=== PATIENT | male | born 1990 ===

== ENCOUNTER 2018-07-01 16:34 | Inpatient (IN) | payer OTHER ==
[2018-07-01] VITALS (11 sets, daily range): BP systolic 108–142; BP diastolic 65–91
[~2018-07-01] VITALS: Ht 167.6 cm; Wt 74.4 kg
--- NOTE | 2018-07-01 17:13 | NUR ---
BREANN AVILA admitted to room 405-1, with an admitting diagnosis of DIABETIC ULCER, on 06/30/18 from DIRECT ADMISSION via AMBULATION, accompanied by POUNCING LATHE OPERATOR.BREANN AVILA introduced to surroundings, call light, bed controls, phone, TV, temperature control, lights, meal times, smoking policy, visitor policy, side rail policy, bathrooms and showers. Patient Rights given to patient in the handbook. BREANN AVILA verbalizes understanding that [facility] is not responsible for the loss or damage to any personal effects or valuables that are kept in the patients posession during their hospitalization. BREANN AVILA verbalizes understanding of Interdisciplinary Patient Education. Patient and/or family were informed about the Rapid Response Team and its purpose.
[2018-07-01] MEDS ORDERED: NS IV 1000 ML 1,000 ML IV SCH (18:00)
[2018-07-01] MEDS ORDERED: NS IV ONE (18:00)
[2018-07-01] MEDS ORDERED: ONDANSETRON 4 MG/2 ML (SDV) Z0FRAN IVP PRN (18:15)
[2018-07-01] MEDS ORDERED: PIPERACILLIN/TAZO 4.5 GM/NS 100 ML IV NR ×2 (18:15)
[2018-07-01] MEDS ORDERED: CATHETER FLUSH 10 ML SYR IV PRN (18:15)
[2018-07-01] MEDS ORDERED: ACETAMINOPHEN 500 MG TAB (TYLENOL) ONE (18:16)
[2018-07-01] MEDS: ACETAMINOPHEN 500 MG TAB (TYLENOL) PO PRN (18:19)
[2018-07-01] MEDS: NS IV 1000 ML 1,000 ML IV SCH ×4 (18:20→23:47)
--- NOTE | 2018-07-01 18:37 | Diagnostic Imaging Report ---
INDICATION: Fever. Time of exam: 6:23 PM No prior studies are available for comparison. The heart size is normal. The pulmonary vascularity is unremarkable. The lungs are clear. No infiltrate, effusion or pneumothorax is detected. Impression: No acute cardiopulmonary process is detected. Dictated by: Dictated on workstation # [id number]
[2018-07-01 18:50] LABS: BASOPHILS # (AUTO) 0.1 10^3/uL (0.0-0.1); BASOPHILS % (AUTO) 0 % (0-10); EOSINOPHILS % (AUTO) 0 % (0-10); HEMATOCRIT 38 % (40-54); HEMOGLOBIN 13.2 G/DL (13.3-17.7); LYMPHOCYTES % (AUTO) 10 % (12-44); MEAN CORPUSCULAR HEMOGLOBIN 29 PG (25-34); MEAN CORPUSCULAR HGB CONC 35 G/DL (32-36); MEAN CORPUSCULAR VOLUME 84 FL (80-99); MEAN PLATELET VOLUME 9.8 FL (7.4-10.4); MONOCYTES # (AUTO) 1.1 X 10^3 (0.0-1.0); MONOCYTES % (AUTO) 6 % (0-12); NEUTROPHILS # (AUTO) 16.2 X 10^3 (1.8-7.8); NEUTROPHILS % (AUTO) 84 % (42-75); PLATELET COUNT 293 10^3/uL (130-400); RED CELL DISTRIBUTION WIDTH 12.2 % (10.0-14.5); WHITE BLOOD COUNT 19.4 10^3/uL (4.3-11.0)
[2018-07-01] MEDS ORDERED: VANCOMYCIN 1,750 MG/NS 500 ML IVPB IV NR ×2 (19:00)
[2018-07-01 19:11] LABS: BILIRUBIN,TOTAL 1.1 MG/DL (0.1-1.0); CALCIUM 10.1 MG/DL (8.5-10.1); CREATININE SERUM 1.49 MG/DL (0.60-1.30); POTASSIUM 3.4 MMOL/L (3.6-5.0); TOTAL PROTEIN 7.7 GM/DL (6.4-8.2)
[2018-07-01 19:27] LABS: LYMPHOCYTES % (MANUAL) 11 %; MONOCYTES % (MANUAL) 4 %; NEUTROPHILS % (MANUAL) 85 %; RBC MORPH NORMAL
--- NOTE | 2018-07-01 19:28 | NUR ---
VANCOMYCIN PHARMACY TO DOSE: BASED ON IBW 63.8 KG, SCr 1.49, EST CrCl 66.6 LOADING DOSE: 1,750 MG MAIN DOSE: 1,250 MG IV Q12HRS VANCOMYCIN TROUGH 07/03/18 @ 06:00 IF TROUGH >20 HOLD 07/03/18 07:00 DOSE.
[2018-07-01] MEDS: inSUlin ASPART (NovoLOG) 1 UNIT/0.01 ML (CHARGE PER UNIT) SC SCH (21:08)
[2018-07-02] MEDS: PIPERACILLIN/TAZOBACTAM (BULK) 4.5 GM in NS (IVPB) 100 ML IV SCH ×3 (01:13→17:01)
[2018-07-02] MEDS: NS IV 1000 ML 1,000 ML IV SCH ×3 (03:44→19:37)
[2018-07-02 04:00] VITALS: BP 128/84
[2018-07-02 06:10] LABS: BASOPHILS # (AUTO) 0.1 10^3/uL (0.0-0.1); BASOPHILS % (AUTO) 0 % (0-10); EOSINOPHILS # (AUTO) 0.2 10^3/uL (0.0-0.3); EOSINOPHILS % (AUTO) 1 % (0-10); HEMATOCRIT 33 % (40-54); HEMOGLOBIN 11.2 G/DL (13.3-17.7); LYMPHOCYTES # (AUTO) 3.1 X 10^3 (1.0-4.0); LYMPHOCYTES % (AUTO) 21 % (12-44); MEAN CORPUSCULAR HEMOGLOBIN 30 PG (25-34); MEAN CORPUSCULAR HGB CONC 34 G/DL (32-36); MEAN CORPUSCULAR VOLUME 87 FL (80-99); MEAN PLATELET VOLUME 9.3 FL (7.4-10.4); MONOCYTES # (AUTO) 1.2 X 10^3 (0.0-1.0); MONOCYTES % (AUTO) 8 % (0-12); NEUTROPHILS # (AUTO) 10.6 X 10^3 (1.8-7.8); NEUTROPHILS % (AUTO) 70 % (42-75); PLATELET COUNT 257 10^3/uL (130-400); RED CELL DISTRIBUTION WIDTH 12.4 % (10.0-14.5); WHITE BLOOD COUNT 15.1 10^3/uL (4.3-11.0)
[2018-07-02] MEDS: inSUlin ASPART (NovoLOG) 1 UNIT/0.01 ML (CHARGE PER UNIT) SC SCH ×4 (06:14→21:14)
[2018-07-02] MEDS: VANCOMYCIN 1,250 MG/NS 250 ML IVPB IV SCH ×4 (06:14→19:58)
[2018-07-02 06:39] LABS: ALANINE AMINOTRANSFERASE 12 U/L (0-55); ALKALINE PHOSPHATASE 96 U/L (40-136); BILIRUBIN,TOTAL 0.7 MG/DL (0.1-1.0); BUN/CREATININE RATIO 15; CALCIUM 8.3 MG/DL (8.5-10.1); CARBON DIOXIDE 22 MMOL/L (21-32); CHLORIDE 106 MMOL/L (98-107); CREATININE SERUM 1.19 MG/DL (0.60-1.30); GFR ESTIMATED > 60; GLUCOSE 263 MG/DL (70-105); SODIUM 136 MMOL/L (135-145); TOTAL PROTEIN 5.9 GM/DL (6.4-8.2)
[2018-07-02 07:50] VITALS: BP 130/72
[2018-07-02] MEDS ORDERED: ACET-2267 PO ×2 (09:01)
[2018-07-02] MEDS ORDERED: METF-398 PO ×2 (09:01)
--- NOTE | 2018-07-02 09:03 | NUR ---
SPOKE WITH THE PATIENT VIA TWO WAY PHONE WITH CARDIOVASCULAR DISEASE SPECIALIST ON THE LINE ABOUT MEDICATIONS. HE STATES HE TAKES METFORMIN BID AND HE GETS THAT SUPPLY FROM [place] [facility]. HE HAS THE TABLETS HERE WITH HIM AND THEY APPEAR TO BE 850MG TABLETS. HE ALSO HAS SOME TYLENOL OTC THAT I ADDED TO THE MED REC PRN. HE STATES HE DOES NOT HAVE A PHARMACY PREFERENCE, HE APPEARS TO BE ON [facility] WITH NO INSURANCE SO I ENTERED [facility] AT THIS TIME.
[2018-07-02] MEDS: ACETAMINOPHEN 500 MG TAB (TYLENOL) PO PRN ×2 (09:08→20:02)
[2018-07-02 11:06] VITALS: BP 120/73
--- NOTE | 2018-07-02 11:29 | History & Physicial (CHS) ---
HPI History of Present Illness: 28 yo male with diabetes presented to clinic with wound on toe, he states it started about 2 weeks ago. He was given antibiotics and followed up shortly after to establish care, but at that visit was noted to have marked tachycardia and fever and was sent for direct admission for cellulitis with suspected sepsis. On arrival, he did have leukocytosis, tachycardia and fever as well as acute kidney injury, but no lactic acidosis or hypotension. He was started on zosyn and vancomycin and he was given 30 cc/kg bolus followed by aggressive fluid resuscitation and his tachycardia has resolved and he is feeling better. He does have some periumbilical pain. Source: patient Exam Limitations: language barrier Date seen by provider: Jul 02, 2018 Time Seen by Provider: 09:45 Attending Physician Chilo Schmidt MD PCP Chilo Schmidt MD Consult Date of Admission Jul 01, 2018 at 17:05 Home Medications Home Medications Reviewed patient Home Medication Reconciliation performed by pharmacy medication reconciliations fire alarm technician and/or nursing. Patients Allergies have been reviewed. Allergies Coded Allergies: No Known Drug Allergies (Unverified , 07/01/18) Uncoded Allergies: NKDA (Allergy, Unknown, 07/01/18) QKS-Irwtte-Bruqnt Hx Patient Social History Alcohol Use: Denies Use Recreational Drug Use: No Recent Foreign Travel: No Contact w/other who traveled: No Recent Infectious Disease Expo: No Physical Abuse Screen: No Sexual Abuse: No Past Medical History PMHx: DM Family Medical History Significant Family History: Diabetes Family History: Diabetes mellitus 19 MOTHER Review of Systems ([place]) Constitutional: fever Respiratory: cough; No short of breath Cardiovascular: No chest pain Gastrointestinal: abdominal pain, nausea; No vomiting Skin: see HPI Reviewed Test Results Reviewed Test Results Lab Laboratory Tests Test 07/01/18 18:30 07/01/18 21:01 07/02/18 06:05 07/02/18 06:10 Range/Units White Blood Count 19.4 H 15.1 H 4.3-11.0 10^3/uL Red Blood Count 4.53 3.79 L 4.35-5.85 10^6/uL Hemoglobin 13.2 L 11.2 L 13.3-17.7 G/DL Hematocrit 38 L 33 L 40-54 % Mean Corpuscular Volume 84 87 80-99 FL Mean Corpuscular Hemoglobin 29 30 25-34 PG Mean Corpuscular Hemoglobin Concent 35 34 32-36 G/DL Red Cell Distribution Width 12.2 12.4 10.0-14.5 % Platelet Count 293 257 130-400 10^3/uL Mean Platelet Volume 9.8 9.3 7.4-10.4 FL Neutrophils (%) (Auto) 84 H 70 42-75 % Lymphocytes (%) (Auto) 10 L 21 12-44 % Monocytes (%) (Auto) 6 8 0-12 % Eosinophils (%) (Auto) 0 1 0-10 % Basophils (%) (Auto) 0 0 0-10 % Neutrophils # (Auto) 16.2 H 10.6 H 1.8-7.8 X 10^3 Lymphocytes # (Auto) 2.0 3.1 1.0-4.0 X 10^3 Monocytes # (Auto) 1.1 H 1.2 H 0.0-1.0 X 10^3 Eosinophils # (Auto) 0.0 0.2 0.0-0.3 10^3/uL Basophils # (Auto) 0.1 0.1 0.0-0.1 10^3/uL Neutrophils % (Manual) 85 % Lymphocytes % (Manual) 11 % Monocytes % (Manual) 4 % Blood Morphology Comment NORMAL Sodium Level 136 136 135-145 MMOL/L Potassium Level 3.4 L 4.0 3.6-5.0 MMOL/L Chloride Level 98 106 98-107 MMOL/L Carbon Dioxide Level 22 22 21-32 MMOL/L Anion Gap 16 H 8 5-14 MMOL/L Blood Urea Nitrogen 25 H 18 7-18 MG/DL Creatinine 1.49 H 1.19 0.60-1.30 MG/DL Estimat Glomerular Filtration Rate 56 > 60 BUN/Creatinine Ratio 17 15 Glucose Level 310 H 263 H 70-105 MG/DL Lactic Acid Level 1.21 0.50-2.00 MMOL/L Calcium Level 10.1 8.3 L 8.5-10.1 MG/DL Corrected Calcium 10.1 9.1 8.5-10.1 MG/DL Total Bilirubin 1.1 H 0.7 0.1-1.0 MG/DL Aspartate Amino Transf (AST/SGOT) 23 17 5-34 U/L Alanine Aminotransferase (ALT/SGPT) 16 12 0-55 U/L Alkaline Phosphatase 117 96 40-136 U/L Total Protein 7.7 5.9 L 6.4-8.2 GM/DL Albumin 4.0 3.0 L 3.2-4.5 GM/DL Glucometer 263 H 268 H 70-110 MG/DL Test 07/02/18 10:22 Range/Units Glucometer 144 H 70-110 MG/DL Radiology CXR 07/02 unremarkable. Physical Exam-(CHC) Physical Exam Vital Signs VS - Last 72 Hours, by Label 07/01/18 07/01/18 07/01/18 07/01/18 17:28 18:03 18:30 18:30 Temp 101.3 101.3 101.0 101.0 Pulse 121 121 112 114 Resp 20 20 20 20 B/P (MAP) 142/85 142/85 (104) 122/78 (93) 122/78 (93) Pulse Ox 98 98 98 98 O2 Delivery Room Air Room Air Room Air Room Air 07/01/18 07/01/18 07/01/18 07/01/18 18:45 19:00 20:00 20:00 Temp 101.0 99.6 Pulse 114 105 98 Resp 22 B/P (MAP) 124/78 (93) 112/65 (81) 113/70 (84) Pulse Ox 98 95 97 O2 Delivery Room Air Room Air Room Air Room Air 07/01/18 07/01/18 07/01/18 07/01/18 20:00 21:00 22:00 23:00 Pulse 98 94 87 90 B/P (MAP) 113/70 (84) 122/77 (92) 108/69 (82) 134/87 (103) Pulse Ox 97 97 96 98 O2 Delivery Room Air Room Air Room Air Room Air 07/01/18 07/01/18 07/02/18 07/02/18 23:40 23:44 04:00 07:50 Temp 98.1 98.5 99.8 Pulse 89 90 92 91 Resp 18 16 16 B/P (MAP) 134/87 (103) 142/91 (108) 128/84 (99) 130/72 (91) Pulse Ox 98 97 98 95 O2 Delivery Room Air Room Air Room Air Room Air 07/02/18 11:06 Temp 98.3 Pulse 90 Resp 16 B/P (MAP) 120/73 (89) Pulse Ox 96 O2 Delivery Room Air Capillary Refill : General Appearance: WD/WN, no apparent distress Respiratory: lungs clear, normal breath sounds Cardiovascular: regular rate, rhythm, no murmur Peripheral Pulses: 2+ Dorsalis Pedis (R), 2+ Left Dors-Pedis (L) Gastrointestinal: normal bowel sounds, soft; No guarding, No rebound; other ( mild periumbilical ttp) Extremities: no pedal edema, other (Black, dry ulcer on right first toe about 1.5 cm diameter with faint surrounding erythema) Neurologic/Psychiatric: alert, normal mood/affect Assessment/Plan Assessment/Plan Admission Dx Sepsis Admission Status: Inpatient Order (span 2 midnights) Reason for Inpatient Admission: Sepsis with underlying diabetes, high risk for complications. (1) Cellulitis Status: Acute Assessment & Plan: Started vancomycin and zosyn, improved this am, continue to monitor closely. (2) Sepsis Status: Acute Assessment & Plan: Secondary to cellulitis, did not meet criteria for severe sepsis (no hypotension, lactic acidosis. Cr elevated but not above 2). Abx as above. Fluid resuscitation done yesterday with good results. (3) Acute renal insufficiency Status: Acute Assessment & Plan: Secondary to sepsis versus hyperglycemia. Improving with IVF. (4) Diabetes mellitus Status: Chronic Assessment & Plan: Sliding scale insulin, hold metformin for now. Qualifiers: Qualified Codes: E11.621 - Type 2 diabetes mellitus with foot ulcer; L97.509 - Non-pressure chronic ulcer of other part of unspecified foot with unspecified severity (5) Diabetic ulcer of toe Status: Acute Assessment & Plan: Wound consult, arterial US. Had x-ray outpatient that did not show evidence of osteo. Qualifiers: (6) DVT prophylaxis Status: Acute Assessment & Plan: Enoxaparin Clinical Quality Measures DVT/VTE Risk/Contraindication: Risk Factor Score Per Nursin RFS Level Per Nursing on Admit: 2=Moderate MICHAEL MARTINEZ MD Jul 02, 2018 11:29
[2018-07-02] MEDS: ENOXAPARIN 40 MG/0.4 ML (LOVENOX) SYR SC SCH (12:05)
[2018-07-02] MEDS ORDERED: DAKIN'S 1/4 STRENGTH (0.125%) 473 ML BTL TOP SCH (12:15)
--- NOTE | 2018-07-02 12:22 | Wound Care Assessment ---
Wound Care Assessment Date Seen by Provider: Jul 02, 2018 Time Seen by Provider: 12:00 Chief Complaint R great toe ulcer. HPI The patient is a 28 year old male Type I diabetic with infected R great toe ulcer and previously uncontrolled diabetes. Dakin's dressings and arterial evaluation ordered. Recreational Drug Use: No Alcohol Use: Denies Use Exam Vital Signs Date Time Temp Pulse Resp B/P (MAP) Pulse Ox O2 Delivery O2 Flow Rate FiO2 07/02/18 11:06 98.3 90 16 120/73 (89) 96 Room Air Capillary Refill : Results Laboratory Tests 07/01/18 18:30: White Blood Count 19.4H, Red Blood Count 4.53, Hemoglobin 13.2L, Hematocrit 38L , Mean Corpuscular Volume 84, Mean Corpuscular Hemoglobin 29, Mean Corpuscular Hemoglobin Concent 35, Red Cell Distribution Width 12.2, Platelet Count 293, Mean Platelet Volume 9.8, Neutrophils (%) (Auto) 84H, Lymphocytes (%) (Auto) 10L , Monocytes (%) (Auto) 6, Eosinophils (%) (Auto) 0, Basophils (%) (Auto) 0, Neutrophils # (Auto) 16.2H, Lymphocytes # (Auto) 2.0, Monocytes # (Auto) 1.1H, Eosinophils # (Auto) 0.0, Basophils # (Auto) 0.1, Neutrophils % (Manual) 85, Lymphocytes % (Manual) 11, Monocytes % (Manual) 4, Blood Morphology Comment NORMAL, Sodium Level 136, Potassium Level 3.4L, Chloride Level 98, Carbon Dioxide Level 22, Anion Gap 16H, Blood Urea Nitrogen 25H, Creatinine 1.49H, Estimat Glomerular Filtration Rate 56, BUN/Creatinine Ratio 17, Glucose Level 310H, Lactic Acid Level 1.21, Calcium Level 10.1, Corrected Calcium 10.1, Total Bilirubin 1.1H, Aspartate Amino Transf (AST/SGOT) 23, Alanine Aminotransferase ( ALT/SGPT) 16, Alkaline Phosphatase 117, Total Protein 7.7, Albumin 4.0 07/01/18 21:01: Glucometer 263H 07/02/18 06:05: White Blood Count 15.1H, Red Blood Count 3.79L, Hemoglobin 11.2L, Hematocrit 33L , Mean Corpuscular Volume 87, Mean Corpuscular Hemoglobin 30, Mean Corpuscular Hemoglobin Concent 34, Red Cell Distribution Width 12.4, Platelet Count 257, Mean Platelet Volume 9.3, Neutrophils (%) (Auto) 70, Lymphocytes (%) (Auto) 21, Monocytes (%) (Auto) 8, Eosinophils (%) (Auto) 1, Basophils (%) (Auto) 0, Neutrophils # (Auto) 10.6H, Lymphocytes # (Auto) 3.1, Monocytes # (Auto) 1.2H, Eosinophils # (Auto) 0.2, Basophils # (Auto) 0.1, Sodium Level 136, Potassium Level 4.0, Chloride Level 106, Carbon Dioxide Level 22, Anion Gap 8, Blood Urea Nitrogen 18, Creatinine 1.19, Estimat Glomerular Filtration Rate > 60, BUN/ Creatinine Ratio 15, Glucose Level 263H, Calcium Level 8.3L, Corrected Calcium 9.1, Total Bilirubin 0.7, Aspartate Amino Transf (AST/SGOT) 17, Alanine Aminotransferase (ALT/SGPT) 12, Alkaline Phosphatase 96, Total Protein 5.9L, Albumin 3.0L 07/02/18 06:10: Glucometer 268H 07/02/18 10:22: Glucometer 144H DARIAN LYON MD Jul 02, 2018 12:22
[2018-07-02 15:47] VITALS: BP 138/86
--- NOTE | 2018-07-02 16:21 | Diagnostic Imaging Report ---
INDICATION: Peripheral vascular disease. FINDINGS: Ankle brachial indices and segmental pressures were obtained. On the right side, the ankle brachial index is 1.18. On the left side, the ankle brachial index is 1.14. The waveforms appear symmetric bilaterally. There is no significant asymmetry. IMPRESSION: No physiologically significant peripheral vascular disease is detected. Dictated by: Dictated on workstation # [id number]
[2018-07-02 19:15] VITALS: BP 144/91
[2018-07-03 00:06] VITALS: BP 118/67
[2018-07-03] MEDS: PIPERACILLIN/TAZOBACTAM (BULK) 4.5 GM in NS (IVPB) 100 ML IV SCH ×4 (00:08→23:44)
[2018-07-03] MEDS: NS IV 1000 ML 1,000 ML IV SCH ×4 (01:42→16:32)
[2018-07-03 04:42] VITALS: BP 157/94
[2018-07-03] MEDS ORDERED: TROUGH ORDER-PHARMACY XX NR (06:00)
[2018-07-03 06:17] LABS: BASOPHILS # (AUTO) 0.1 10^3/uL (0.0-0.1); BASOPHILS % (AUTO) 1 % (0-10); EOSINOPHILS # (AUTO) 0.4 10^3/uL (0.0-0.3); EOSINOPHILS % (AUTO) 3 % (0-10); HEMATOCRIT 35 % (40-54); HEMOGLOBIN 11.6 G/DL (13.3-17.7); LYMPHOCYTES # (AUTO) 2.3 X 10^3 (1.0-4.0); LYMPHOCYTES % (AUTO) 22 % (12-44); MEAN CORPUSCULAR HEMOGLOBIN 29 PG (25-34); MEAN CORPUSCULAR HGB CONC 33 G/DL (32-36); MEAN CORPUSCULAR VOLUME 86 FL (80-99); MEAN PLATELET VOLUME 9.4 FL (7.4-10.4); MONOCYTES # (AUTO) 0.6 X 10^3 (0.0-1.0); MONOCYTES % (AUTO) 6 % (0-12); NEUTROPHILS # (AUTO) 7.1 X 10^3 (1.8-7.8); NEUTROPHILS % (AUTO) 68 % (42-75); PLATELET COUNT 269 10^3/uL (130-400); RED CELL DISTRIBUTION WIDTH 12.2 % (10.0-14.5); WHITE BLOOD COUNT 10.4 10^3/uL (4.3-11.0)
[2018-07-03] MEDS: inSUlin ASPART (NovoLOG) 1 UNIT/0.01 ML (CHARGE PER UNIT) SC SCH ×4 (06:29→21:38)
[2018-07-03 06:43] LABS: ALANINE AMINOTRANSFERASE 15 U/L (0-55); ALBUMIN 3.2 GM/DL (3.2-4.5); ALKALINE PHOSPHATASE 91 U/L (40-136); BILIRUBIN,TOTAL 0.3 MG/DL (0.1-1.0); BUN/CREATININE RATIO 10; CALCIUM 8.9 MG/DL (8.5-10.1); CARBON DIOXIDE 22 MMOL/L (21-32); CHLORIDE 106 MMOL/L (98-107); CREATININE SERUM 0.97 MG/DL (0.60-1.30); GFR ESTIMATED > 60; GLUCOSE 264 MG/DL (70-105); POTASSIUM 3.9 MMOL/L (3.6-5.0); SODIUM 136 MMOL/L (135-145); TOTAL PROTEIN 6.2 GM/DL (6.4-8.2)
[2018-07-03 06:50] LABS: VANCOMYCIN,TROUGH 13.9 UG/ML (10.0-20.0)
[2018-07-03] MEDS: VANCOMYCIN 1,250 MG/NS 250 ML IVPB IV SCH ×4 (06:57→18:47)
[2018-07-03 08:00] VITALS: BP 141/92
[2018-07-03] MEDS: ACETAMINOPHEN 500 MG TAB (TYLENOL) PO PRN (08:31)
--- NOTE | 2018-07-03 10:16 | Progress Note (SOAP) ---
Subjective Subjective/Events-last exam Tmax 100.9 last 24 hours. Reports he is feeling well and stomach is hurting less. Reports he was dx with DM 13 or 14 years ago and has never been on insulin. States has been taking metformin regularly last 3 years, and has only been out for a couple of days here and there. Review of Systems Date Seen by Provider: Jul 03, 2018 Time Seen by Provider: 09:58 Focused Exam Lactate Level 07/01/18 18:30: Lactic Acid Level 1.21 Objective Exam Last Set of Vital Signs Vital Signs Date Time Temp Pulse Resp B/P (MAP) Pulse Ox O2 Delivery O2 Flow Rate FiO2 07/03/18 08:00 98.2 96 16 141/92 (108) 97 Room Air Capillary Refill : I&O Intake and Output 07/03/18 00:00 Intake Total 1622.5 ml Output Total 750 ml Balance 872.5 ml Intake Oral 1120 ml IV Total 502.5 ml Output Urine Total 750 ml # Voids 5 # Bowel Movements 1 General: Alert, No Acute Distress Lungs: Clear to Auscultation, Normal Air Movement Heart: Regular Rate, No Murmurs Abdomen: Normal Bowel Sounds, Soft, No Tenderness Skin: Other (Toe wrapped with no drainage, no surrounding erythema noted) Psych/Mental Status: Mental Status NL Results/Procedures Lab Laboratory Tests 07/02/18 10:22: Glucometer 144H 07/02/18 15:47: Glucometer 269H 07/02/18 20:50: Glucometer 239H 07/03/18 05:34: Glucometer 243H 07/03/18 06:00: White Blood Count 10.4, Red Blood Count 4.02L, Hemoglobin 11.6L, Hematocrit 35L , Mean Corpuscular Volume 86, Mean Corpuscular Hemoglobin 29, Mean Corpuscular Hemoglobin Concent 33, Red Cell Distribution Width 12.2, Platelet Count 269, Mean Platelet Volume 9.4, Neutrophils (%) (Auto) 68, Lymphocytes (%) (Auto) 22, Monocytes (%) (Auto) 6, Eosinophils (%) (Auto) 3, Basophils (%) (Auto) 1, Neutrophils # (Auto) 7.1, Lymphocytes # (Auto) 2.3, Monocytes # (Auto) 0.6, Eosinophils # (Auto) 0.4H, Basophils # (Auto) 0.1, Sodium Level 136, Potassium Level 3.9, Chloride Level 106, Carbon Dioxide Level 22, Anion Gap 8, Blood Urea Nitrogen 10, Creatinine 0.97, Estimat Glomerular Filtration Rate > 60, BUN/ Creatinine Ratio 10, Glucose Level 264H, Calcium Level 8.9, Corrected Calcium 9.5, Total Bilirubin 0.3, Aspartate Amino Transf (AST/SGOT) 15, Alanine Aminotransferase (ALT/SGPT) 15, Alkaline Phosphatase 91, Total Protein 6.2L, Albumin 3.2, Vancomycin Level Trough 13.9 Microbiology 07/01/18 Blood Culture - Preliminary, Resulted No growth 07/01/18 Gram Stain - Final, Resulted 07/01/18 Wound Culture - Preliminary, Resulted See Report Radiology CXR 07/02 unremarkable. Assessment/Plan Assessment/Plan (1) Cellulitis Status: Acute Assessment & Plan: Started vancomycin and zosyn, improved this am, continue to monitor closely. 07/03 continued improvement, febrile to 100.9 last 24 hours, continue IV abx for another day (2) Sepsis Status: Acute Assessment & Plan: 07/02 Secondary to cellulitis, did not meet criteria for severe sepsis (no hypotension, lactic acidosis. Cr elevated but not above 2). Abx as above. Fluid resuscitation done yesterday with good results. (3) Acute renal insufficiency Status: Resolved Assessment & Plan: Secondary to sepsis versus hyperglycemia. Improving with IVF. (4) Diabetes mellitus Status: Chronic Assessment & Plan: Sliding scale insulin, hold metformin for now. 07/03 A1c in clinic 11.2 on 07/01, will start scheduled insulin and consult diabetic education. Qualifiers: Qualified Codes: E11.621 - Type 2 diabetes mellitus with foot ulcer; L97.509 - Non-pressure chronic ulcer of other part of unspecified foot with unspecified severity (5) Diabetic ulcer of toe Status: Acute Assessment & Plan: Wound consult, arterial US. Had x-ray outpatient that did not show evidence of osteo. 07/03 US with TBI/segmental pressures with no evidence of stenosis. Wound dressings per Dr. Goetz's recommendations. Qualifiers: (6) DVT prophylaxis Status: Acute Assessment & Plan: Enoxaparin Clinical Quality Measures DVT/VTE Risk/Contraindication: Risk Factor Score Per Nursin RFS Level Per Nursing on Admit: 2=Moderate MICHAEL MARTINEZ MD Jul 03, 2018 10:16
[2018-07-03] MEDS: ENOXAPARIN 40 MG/0.4 ML (LOVENOX) SYR SC SCH (11:50)
[2018-07-03 12:00] VITALS: BP 165/65
[2018-07-03 16:24] VITALS: BP 181/113
[2018-07-03 19:44] VITALS: BP 179/112
--- NOTE | 2018-07-03 20:25 | NUR ---
PT BP 194/112. DR MARTINEZ NOTIFIED AND NEW ORDERS TO DC IV FLUIDS AND TO CALL BACK IF PT SBP>160 AND DBP>105
[2018-07-04 00:40] VITALS: BP 148/96
[2018-07-04] MEDS: ACETAMINOPHEN 500 MG TAB (TYLENOL) PO PRN (03:57)
[2018-07-04 04:01] VITALS: BP 150/92
[2018-07-04 06:01] LABS: BASOPHILS # (AUTO) 0.1 10^3/uL (0.0-0.1); BASOPHILS % (AUTO) 1 % (0-10); EOSINOPHILS # (AUTO) 0.4 10^3/uL (0.0-0.3); EOSINOPHILS % (AUTO) 4 % (0-10); HEMATOCRIT 34 % (40-54); HEMOGLOBIN 11.8 G/DL (13.3-17.7); LYMPHOCYTES # (AUTO) 2.2 X 10^3 (1.0-4.0); LYMPHOCYTES % (AUTO) 24 % (12-44); MEAN CORPUSCULAR HEMOGLOBIN 29 PG (25-34); MEAN CORPUSCULAR HGB CONC 34 G/DL (32-36); MEAN CORPUSCULAR VOLUME 86 FL (80-99); MEAN PLATELET VOLUME 9.3 FL (7.4-10.4); MONOCYTES # (AUTO) 0.5 X 10^3 (0.0-1.0); MONOCYTES % (AUTO) 5 % (0-12); NEUTROPHILS # (AUTO) 6.3 X 10^3 (1.8-7.8); NEUTROPHILS % (AUTO) 67 % (42-75); PLATELET COUNT 340 10^3/uL (130-400); RED CELL DISTRIBUTION WIDTH 12.3 % (10.0-14.5); WHITE BLOOD COUNT 9.4 10^3/uL (4.3-11.0)
[2018-07-04] MEDS: inSUlin ASPART (NovoLOG) 1 UNIT/0.01 ML (CHARGE PER UNIT) SC SCH ×2 (06:19→11:43)
[2018-07-04 06:20] LABS: ALANINE AMINOTRANSFERASE 13 U/L (0-55); ALBUMIN 3.3 GM/DL (3.2-4.5); ALKALINE PHOSPHATASE 94 U/L (40-136); BILIRUBIN,TOTAL 0.3 MG/DL (0.1-1.0); BUN/CREATININE RATIO 10; CALCIUM 9.4 MG/DL (8.5-10.1); CARBON DIOXIDE 22 MMOL/L (21-32); CHLORIDE 107 MMOL/L (98-107); GFR ESTIMATED > 60; GLUCOSE 195 MG/DL (70-105); SODIUM 138 MMOL/L (135-145); TOTAL PROTEIN 6.8 GM/DL (6.4-8.2)
[2018-07-04] MEDS: VANCOMYCIN 1,250 MG/NS 250 ML IVPB IV SCH ×2 (06:20)
[2018-07-04] MEDS: PIPERACILLIN/TAZOBACTAM (BULK) 4.5 GM in NS (IVPB) 100 ML IV SCH (07:49)
[2018-07-04 08:00] VITALS: BP 151/98
[2018-07-04] MEDS ORDERED: INSU100I29 SQ ×2 (08:26)
[2018-07-04] MEDS ORDERED: LISI-552 PO ×2 (08:26)
[2018-07-04] MEDS ORDERED: lisINopril 20 MG (PRINIVIL) TABLET PO SCH (09:00)
[2018-07-04] MEDS ORDERED: SODI473S7 TOP ×2 (10:40)
[2018-07-04] MEDS ORDERED: CLIN300C11 PO ×2 (10:40)
--- NOTE | 2018-07-04 10:41 | Discharge Instructions ---
Discharge Inst-[facility] Discharge Medications New, Converted or Re-Newed RX: Other (Clindamycin, lisinopril and Dakin's sent to pharmacy, insulin pens will be available as sample from [facility] area at [facility]) New Medications: Clindamycin HCl (Clindamycin HCl) 300 Mg Capsule 300 MG PO Q6H, #40 CAP 0 Refills Lisinopril (Lisinopril) 20 Mg Tablet 20 MG PO DAILY, #30 TAB 0 Refills Sodium Hypochlorite (Dakin's) 473 Ml Solution 0 TOP DAILY, #1 EA 0 Refills Use for daily dressing changes with gauze for great toe Insulin Detemir (Levemir Flextouch) 100 Unit/1 Ml Insuln.pen 10 UNIT SQ HS, #1 EA Continued Medications: Acetaminophen (Tylenol Extra Strength) 500 Mg Tablet 500-1000 MG PO Q6H PRN for PAIN-MILD, TAB Metformin HCl (Metformin HCl) 850 Mg Tablet 850 MG PO BID, TAB Patient Instructions Goal/Follow Up Appt: Follow up with Dr. Carmen on 07/10 at 11:40 am. Patient Instructions: Dressing change to ulcer with Dakin solution daily until follow up. Return to The Hospital For: Fever, redness around wound, foul drainage from wound Activity & Diet Discharge Diet: ADA Diet Activity as Tolerated: Yes Orders-Post D/C & Referrals Pneu Vac Indicated: Yes Copy Copies To 1: CARA CARMEN MD, BETHANY N MD Jul 04, 2018 10:41
--- NOTE | 2018-07-04 10:42 | Discharge Summary ---
Diagnosis/Chief Complaint Date of Admission Jul 01, 2018 at 17:05 Date of Discharge July 04, 2018 Admission Diagnosis Admission Diagnosis Sepsis Cellulitis Discharge Diagnosis See below Problems/Diagnosis: (1) Cellulitis Assessment & Plan: Started vancomycin and zosyn, improved this am, continue to monitor closely. 07/03 continued improvement, febrile to 100.9 last 24 hours, continue IV abx for another day 07/04 Afebrile x 24 hours, wound culture with polymicrobial growth, d/c with 10 days of clindamycin. Qualifiers: Status: Acute (2) Sepsis Assessment & Plan: 07/02 Secondary to cellulitis, did not meet criteria for severe sepsis (no hypotension, lactic acidosis. Cr elevated but not above 2). Abx as above. Fluid resuscitation done yesterday with good results. Status: Resolved Resolution Date/Time: 07/04/18 @ 11:47 (3) Acute renal insufficiency Assessment & Plan: Secondary to sepsis versus hyperglycemia. Improving with IVF. Status: Resolved Resolution Date/Time: 07/03/18 @ 10:15 (4) Diabetes mellitus Assessment & Plan: Sliding scale insulin, hold metformin for now. 07/03 A1c in clinic 11.2 on 07/01, will start scheduled insulin and consult diabetic education. 07/04 samples in clinic obtained for levemir pens 10 units daily, resume metformin and monitor blood sugars for further adjustments. Qualifiers: Qualified Codes: E11.621 - Type 2 diabetes mellitus with foot ulcer; L97.509 - Non-pressure chronic ulcer of other part of unspecified foot with unspecified severity Status: Chronic (5) Diabetic ulcer of toe Assessment & Plan: Wound consult, arterial US. Had x-ray outpatient that did not show evidence of osteo. 07/03 US with TBI/segmental pressures with no evidence of stenosis. Wound dressings per Dr. Goetz's recommendations. 07/04 Dakin's ordered on d/c Qualifiers: Status: Acute (6) Hypertension Assessment & Plan: BP elevated during stay, suspect underlying chronic HTN, started lisinopril. Qualifiers: Qualified Codes: I10 - Essential (primary) hypertension Status: Chronic Chief Complaint/HPI Chief Complaint/HPI 28 yo male with diabetes presented to clinic with wound on toe, he states it started about 2 weeks ago. He was given antibiotics and followed up shortly after to establish care, but at that visit was noted to have marked tachycardia and fever and was sent for direct admission for cellulitis with suspected sepsis. On arrival, he did have leukocytosis, tachycardia and fever as well as acute kidney injury, but no lactic acidosis or hypotension. He was started on zosyn and vancomycin and he was given 30 cc/kg bolus followed by aggressive fluid resuscitation and his tachycardia has resolved and he is feeling better. He does have some periumbilical pain. Discharge Summary-Simple/Stand Consultations Discharge Physical Examination Allergies: Coded Allergies: No Known Drug Allergies (Unverified , 07/01/18) Uncoded Allergies: NKDA (Allergy, Unknown, 07/01/18) Vitals & I&Os Vital Sign - Last 12Hours Date Time Temp Pulse Resp B/P (MAP) Pulse Ox O2 Delivery O2 Flow Rate FiO2 07/04/18 08:00 97.7 80 18 151/98 (115) 98 Room Air Intake and Output 07/04/18 00:00 Intake Total 2522.5 ml Balance 2522.5 ml General Appearance: Alert, No Acute Distress Respiratory: Clear to Auscultation, Normal Air Movement Cardiovascular: Regular Rate, No Murmurs Abdominal: Normal Bowel Sounds, Soft Skin: Other (right great toe wrapped, no drainage, no surrounding erythema) Neuro: Normal Speech Psych/Mental Status: Mental Status NL Hospital Course See final discharge diagnosis. Radiology Reviewed CXR 07/02 unremarkable. Discharge Instructions to patient/family Please see electronic discharge instructions given to patient. Discharge Medications Reviewed and agree with Discharge Medication list on patient's Discharge Instruction sheet Clinical Quality Measures DVT/VTE Risk/Contraindication: Risk Factor Score Per Nursin RFS Level Per Nursing on Admit: 2=Moderate Copy Copies To 1: CARA CARMEN MD, BETHANY N MD Jul 04, 2018 10:42
[2018-07-04] MEDS: ENOXAPARIN 40 MG/0.4 ML (LOVENOX) SYR SC SCH (11:45)
[2018-07-04 12:00] VITALS: BP 162/112
--- NOTE | 2018-07-04 13:18 | NUR ---
ARJUN CHRISTIAN demonstrates understanding of discharge instructions and accurately returns instructions upon questioning. Copy of Post-Discharge Instructions and Medication Discharge Instructions given to patient and . ARJUN CHRISTIAN is able to manage continuing needs after discharge. Patients belongings returned to patient. Skin dry and intact; no breakdown noted. Patient discharged from [facility] on 07/04/17 at 1318 . ARJUN CHRISTIAN left floor via ambulatory, accompanied by and staff.
[2018-07-04 13:53] VITALS: BP 162/112
--- NOTE | 2018-07-07 16:45 | Physician Query-General Query ---
Physician Query-General Query to Physician: Dr Cowart, Can you please clarify if the patient had acute kidney injury or acute renal insufficiency? Acute kidney injury is listed in the HPI but acute renal insufficiency is listed as discharge dx. 1. Acute kidney injury 2. Acute renal insufficiency PHYSICIAN RESPONSE: Based on the clinical findings in the record, please respond to the query above on this document as an addendum. Possible, probable, or questionable diagnosis can be coded for INPATIENTS ONLY. Physician Response: Acute kidney injury Physician Response Acute kidney injury If you have questions please contact: Phys Ther: Ext: Thank you for your time and cooperation. Clinical Stock Cutter/Phys Ther This is a permanent part of the medical record IMAN MÉNDEZ Jul 07, 2018 16:45 MICHAEL COWART MD Jul 11, 2018 08:47
== END 2018-07-04 13:18 | disposition home or self-care (01) | DRG 872 ==
LOC: 4TH 17:05
PROVIDERS: ADMIT Family Medicine; ATTEND Internal Medicine
DX: A41.9 Sepsis, unspecified organism (principal); L03.031 Cellulitis of right toe; N17.9 Acute kidney failure, unspecified; E10.621 Type 1 diabetes mellitus with foot ulcer; L97.519 Non-pressure chronic ulcer of other part of right foot with unspecified severity; E10.65 Type 1 diabetes mellitus with hyperglycemia; I10 Essential (primary) hypertension; Z79.84 Long term (current) use of oral hypoglycemic drugs
CPT/HCPCS: 36415; 71045; 80053; 80202; 82962; 83605; 85007; 85025; 85027; 87040; 87070; 87077; 87205; 93923

== ENCOUNTER → 2018-07-08 | Outpatient (CLI) | payer OTHER ==
[~2018-07-08] MED LIST: ACET-2267 PO; CLIN300C11 PO; INSU100I29 SQ; LISI-552 PO; METF-398 PO; SODI473S7 TOP
== END ==
LOC: WOUNDCARE 13:50
PROVIDERS: ATTEND Surgery
DX: E11.621 Type 2 diabetes mellitus with foot ulcer (principal); E11.42 Type 2 diabetes mellitus with diabetic polyneuropathy; E11.65 Type 2 diabetes mellitus with hyperglycemia; L97.514 Non-pressure chronic ulcer of other part of right foot with necrosis of bone; M86.471 Chronic osteomyelitis with draining sinus, right ankle and foot
CPT/HCPCS: 87070; 87077; 87205

== ENCOUNTER → 2018-07-15 | Outpatient (CLI) | payer OTHER | LOC: WOUNDCARE 15:29 | PROVIDERS: ATTEND Surgery | DX: E11.621 Type 2 diabetes mellitus with foot ulcer (principal); E11.42 Type 2 diabetes mellitus with diabetic polyneuropathy; L97.514 Non-pressure chronic ulcer of other part of right foot with necrosis of bone; M86.471 Chronic osteomyelitis with draining sinus, right ankle and foot | CPT/HCPCS: 11043 ==

== ENCOUNTER → 2018-07-22 | Outpatient (CLI) | payer OTHER | LOC: WOUNDCARE 15:46 | PROVIDERS: ATTEND Surgery | DX: E11.621 Type 2 diabetes mellitus with foot ulcer (principal); E11.42 Type 2 diabetes mellitus with diabetic polyneuropathy; L97.514 Non-pressure chronic ulcer of other part of right foot with necrosis of bone; M86.471 Chronic osteomyelitis with draining sinus, right ankle and foot | CPT/HCPCS: 11044 ==

== ENCOUNTER → 2018-07-29 | Outpatient (CLI) | payer OTHER | LOC: WOUNDCARE 15:35 | PROVIDERS: ATTEND Surgery | DX: E11.621 Type 2 diabetes mellitus with foot ulcer (principal); E11.42 Type 2 diabetes mellitus with diabetic polyneuropathy; L97.514 Non-pressure chronic ulcer of other part of right foot with necrosis of bone; M86.471 Chronic osteomyelitis with draining sinus, right ankle and foot | CPT/HCPCS: 11043 ==

== ENCOUNTER → 2018-08-05 | Outpatient (CLI) | payer OTHER | LOC: WOUNDCARE 15:28 | PROVIDERS: ATTEND Surgery | DX: E11.621 Type 2 diabetes mellitus with foot ulcer (principal); E11.42 Type 2 diabetes mellitus with diabetic polyneuropathy; L97.512 Non-pressure chronic ulcer of other part of right foot with fat layer exposed; M86.471 Chronic osteomyelitis with draining sinus, right ankle and foot | CPT/HCPCS: 11042 ==

== ENCOUNTER → 2018-08-12 | Outpatient (CLI) | payer OTHER | LOC: WOUNDCARE 15:32 | PROVIDERS: ATTEND Surgery | DX: E11.621 Type 2 diabetes mellitus with foot ulcer (principal); E11.42 Type 2 diabetes mellitus with diabetic polyneuropathy; L97.516 Non-pressure chronic ulcer of other part of right foot with bone involvement without evidence of necrosis; M86.471 Chronic osteomyelitis with draining sinus, right ankle and foot | CPT/HCPCS: 11042 ==

== ENCOUNTER → 2018-08-19 | Outpatient (CLI) | payer OTHER | LOC: WOUNDCARE 15:33 | PROVIDERS: ATTEND Surgery | DX: E11.621 Type 2 diabetes mellitus with foot ulcer (principal); E11.42 Type 2 diabetes mellitus with diabetic polyneuropathy; L97.516 Non-pressure chronic ulcer of other part of right foot with bone involvement without evidence of necrosis; M86.471 Chronic osteomyelitis with draining sinus, right ankle and foot | CPT/HCPCS: 11042 ==

== ENCOUNTER → 2018-09-02 | Outpatient (CLI) | payer OTHER | LOC: WOUNDCARE 15:29 | PROVIDERS: ATTEND Surgery | DX: E11.621 Type 2 diabetes mellitus with foot ulcer (principal); E11.42 Type 2 diabetes mellitus with diabetic polyneuropathy; L97.512 Non-pressure chronic ulcer of other part of right foot with fat layer exposed; M86.471 Chronic osteomyelitis with draining sinus, right ankle and foot | CPT/HCPCS: 11042 ==

== ENCOUNTER → 2018-09-08 | Outpatient (CLI) | payer SELFPAY | LOC: WOUNDCARE 15:03 | PROVIDERS: ATTEND Surgery | DX: E11.621 Type 2 diabetes mellitus with foot ulcer (principal); L97.512 Non-pressure chronic ulcer of other part of right foot with fat layer exposed; E11.69 Type 2 diabetes mellitus with other specified complication; M86.471 Chronic osteomyelitis with draining sinus, right ankle and foot; E11.42 Type 2 diabetes mellitus with diabetic polyneuropathy | CPT/HCPCS: 11042 ==

== ENCOUNTER → 2018-09-15 | Outpatient (CLI) | payer OTHER | LOC: WOUNDCARE 15:04 | PROVIDERS: ATTEND Surgery | DX: E11.621 Type 2 diabetes mellitus with foot ulcer (principal); L97.512 Non-pressure chronic ulcer of other part of right foot with fat layer exposed; E11.69 Type 2 diabetes mellitus with other specified complication; M86.471 Chronic osteomyelitis with draining sinus, right ankle and foot; E11.42 Type 2 diabetes mellitus with diabetic polyneuropathy | CPT/HCPCS: 11042 ==

== ENCOUNTER → 2018-09-22 | Outpatient (CLI) | payer OTHER | LOC: WOUNDCARE 14:59 | PROVIDERS: ATTEND Surgery | DX: E11.621 Type 2 diabetes mellitus with foot ulcer (principal); L97.512 Non-pressure chronic ulcer of other part of right foot with fat layer exposed; E11.69 Type 2 diabetes mellitus with other specified complication; M86.471 Chronic osteomyelitis with draining sinus, right ankle and foot; E11.42 Type 2 diabetes mellitus with diabetic polyneuropathy | CPT/HCPCS: 11042 ==

== ENCOUNTER → 2018-09-29 | Outpatient (CLI) | payer OTHER | LOC: WOUNDCARE 14:55 | PROVIDERS: ATTEND Surgery | DX: E11.621 Type 2 diabetes mellitus with foot ulcer (principal); L97.512 Non-pressure chronic ulcer of other part of right foot with fat layer exposed; E11.69 Type 2 diabetes mellitus with other specified complication; M86.471 Chronic osteomyelitis with draining sinus, right ankle and foot; E11.42 Type 2 diabetes mellitus with diabetic polyneuropathy | CPT/HCPCS: 11042 ==

== ENCOUNTER 2018-09-30 02:32 | Emergency (ER) | payer OTHER ==
[~2018-09-30] VITALS: Ht 167.6 cm; Wt 78.0 kg
[2018-09-30] MEDS ORDERED: KETOROLAC 60 MG/2 ML VIAL IM STA (03:20)
--- NOTE | 2018-09-30 03:27 | ED Lower Extremity ---
General Stated Complaint: WOUND ON FOOT Source: patient Exam Limitations: language barrier (LANGUAGE LINE IS NOT WORKING) History of Present Illness Date Seen by Provider: Sep 30, 2018 Time Seen by Provider: 02:52 Initial Comments PT ARRIVES VIA POV --AMBULATES IN ON HIS OWN PT C/O PAIN TO RIGHT FOOT PT IS DIABETIC AND HAS A CHRONIC WOUND TO RIGHT FOOT--WAS ADMITTED 07/01/18 WITH SEPSIS DUE TO INFECTION IN THIS FOOT ULCER--HAD JUST SOUGHT CARE/ESTABLISHED CARE AT [facility]. AT THAT TIME PT HAD A CAST PLACED ON HIS FOOT AND LOWER LEG YESTERDAY ( 09/29/18 ) BY DR. LYON AT WOUND CARE AND HAS A FOLLOW UP APPOINTMENT TOMORROW ( 10/01/18 ) AT 1400 PT IS WEARING A WALKING BOOT OVER THE CAST PT HAS NOT TAKEN ANYTHING FOR PAIN AT ANY TIME PCP: DR. CARMEN, [facility] WOUND CARE: DR. LYON Allergies and Home Medications Allergies Coded Allergies: No Known Drug Allergies (Unverified , 07/01/18) Uncoded Allergies: NKDA (Allergy, Unknown, 07/01/18) Home Medications Acetaminophen 500 Mg Tablet, 500-1,000 MG PO Q6H PRN for PAIN-MILD, (Reported) Clindamycin HCl 300 Mg Capsule, 300 MG PO Q6H Prescribed by: MICHAEL MARTINEZ on 07/04/18 1040 Insulin Detemir 100 Unit/1 Ml Insuln.pen, 10 UNIT SQ HS Prescribed by: MICHAEL MARTINEZ on 07/04/18 0826 Lisinopril 20 Mg Tablet, 20 MG PO DAILY Prescribed by: MICHAEL MARTINEZ on 07/04/18 0826 Metformin HCl 850 Mg Tablet, 850 MG PO BID, (Reported) Sodium Hypochlorite 473 Ml Solution, 0 TOP DAILY Use for daily dressing changes with gauze for great toe Prescribed by: MICHAEL MARTINEZ on 07/04/18 1040 Patient Home Medication List Home Medication List Reviewed: Yes Review of Systems Constitutional: no symptoms reported Musculoskeletal: see HPI Skin: see HPI Past Vvbtnta-Gsvogt-Hyvxzk Hx Patient Social History Recent Foreign Travel: No Contact w/Someone Who Travel: No Past Medical History Endocrine: Yes Diabetes, Insulin dep Integumentary: Yes (CHRONIC WOUND RIGHT GREAT TOE) Family Medical History Diabetes mellitus 19 MOTHER Diabetes Physical Exam Vital Signs Capillary Refill : Height, Weight, BMI Height: 5'6.00" Weight: 164lbs. 0.0oz. [id number]; 26.5 BMI Method: General Appearance: WD/WN, no apparent distress, other (FLAT/NON-CHALANT, DOES NOT APPEAR TO BE IN ANY DISCOMFORT OR DISTRESS) Feet: right foot other (MEDIAL ASPECT OF RIGHT GREAT TOE WITH APPROXIMATELY 1 CM ULCER, FILLED WITH PACKING MATERIAL, HELD IN PLACE BY STERI STRIP. MODERATE AMOUNT OF DRAINAGE ON BANDAGE, BUT NO DRAINAGE FROM WOUND AT THIS TIME. HAS MILD SURROUNDING ERYTHEMA AND EDEMA. NO STREAKS. MOTOR/VASCULAR INTACT. DOES HAVE SENSATION TO LIGHT TOUCH. ) Neurologic/Psychiatric: alert, normal mood/affect, oriented x 3 Skin: normal color, warm/dry, other ( ABOVE) Progress/Results/Core Measures Results/Orders Lab Results Laboratory Tests Test 09/30/18 03:00 Range/Units Glucometer 220 H 70-110 MG/DL My Orders Orders - JENELLE CHENG DO Ketorolac Injection (Toradol Injection) (09/30/18 03:20) Wound Dressing-Ed (09/30/18 03:21) Progress Progress Note : Progress Note CAST REMOVED, PER INSTRUCTIONS PROVIDED BY PT, DUE TO PT'S C/O OF PAIN TO HIS FOOT UNABLE TO ASSESS TOES OR CAPILLARY REFILL ANY OTHER WAY , CAST COMPLETELY COVERS THE FOOT AND ALL TOES ON REMOVAL OF CAST AND DRESSINGS, FOOT IS PINK WARM AND DRY WITH SENSATION INTACT. NO EVIDENCE OF ANY AREAS OF FRICTION OR DECREASED CIRCULATION. WOUND IS NOT BLEEDING OR HAVING ACTIVE DRAINAGE AND PACKING IS IN PLACE. WOUND RE-DRESSED AND HEAVILY PADDED, AND PT PLACED BACK IN WALKING BOOT Departure Impression Primary Impression: PAIN TO RIGHT GREAT TOE DUE TO CHRONIC DIABETIC ULCER Additional Impression: IDDM (insulin dependent diabetes mellitus) Disposition: 01 HOME, SELF-CARE Condition: Stable Departure-Patient Inst. Referrals: CARA CARMEN MD (PCP) Primary Care Physician DARIAN LYON MD Patient Instructions: Diabetic Foot Ulcer (DC) Add. Discharge Instructions: FOLLOW UP WITH DR. LYON AT WOUND CARE TODAY FOR FURTHER CARE TAKE YOUR MEDICATIONS PRESCRIBED JENELLE CHENG DO Sep 30, 2018 03:27
[2018-09-30 03:50] VITALS: BP 153/114
--- OUTSIDE RECORDS SUMMARY | 2018-09-30 07:39 | XMS REPORT | Continuity of Care Document ---
Author Organization Unknown Address Unknown Allergies Active Description Code Type Severity Reaction Onset Reported/Identified Relationship to Patient Clinical Status Yes NKDA NKDA Unknown N/A 07/01/2018 Yes No Known Drug Allergies [id number] Drug Allergy Unknown N/A 07/01/2018 Medications There is no data. Problems Date Dx Coded Attending Type Code Diagnosis Diagnosed By 07/04/2018 CARA CARMEN MD, Ot A41.9 SEPSIS, UNSPECIFIED ORGANISM 07/04/2018 CARA CARMEN MD, Ot E10.621 TYPE 1 DIABETES MELLITUS WITH FOOT ULCER 07/04/2018 CARA CARMEN MD, Ot E10.65 TYPE 1 DIABETES MELLITUS WITH HYPERGLYCE 07/04/2018 CARA CARMEN MD Ot I10 ESSENTIAL (PRIMARY) HYPERTENSION 07/04/2018 CARA CARMEN MD, Ot L03.031 CELLULITIS OF RIGHT TOE 07/04/2018 CARA CARMEN MD, Ot L97.519 NON-PRS CHRONIC ULCER OTH PRT RIGHT FOOT 07/04/2018 CARA CARMEN MD, Ot N17.9 ACUTE KIDNEY FAILURE, UNSPECIFIED 07/04/2018 CARA CARMEN MD, Ot N28.9 DISORDER OF KIDNEY AND URETER, UNSPECIFI 07/04/2018 CARA CARMEN MD, Ot Z79.84 SENIOR CARE (CURRENT) USE OF ORAL HYPOGLYC 07/09/2018 DARIAN LYON MD, Ot E11.42 TYPE 2 DIABETES MELLITUS WITH DIABETIC P 07/09/2018 DARIAN LYON MD, Ot E11.621 TYPE 2 DIABETES MELLITUS WITH FOOT ULCER 07/09/2018 DARIAN LYON MD, Ot E11.65 TYPE 2 DIABETES MELLITUS WITH HYPERGLYCE 07/09/2018 DARIAN LYON MD, Ot L97.514 NON-PRS CHRONIC ULCER OTH PRT RIGHT FOOT 07/09/2018 DARIAN LYON MD, Ot M86.471 CHRONIC OSTEOMYELITIS W DRAINING SINUS, 07/09/2018 CAMRON MD, DARIAN G Ot E11.42 TYPE 2 DIABETES MELLITUS WITH DIABETIC P 07/09/2018 DARIAN LYON MD Ot E11.621 TYPE 2 DIABETES MELLITUS WITH FOOT ULCER 07/09/2018 DARIAN LYON MD Ot E11.65 TYPE 2 DIABETES MELLITUS WITH HYPERGLYCE 07/09/2018 DARIAN LYON MD Ot L97.514 NON-PRS CHRONIC ULCER OTH PRT RIGHT FOOT 07/09/2018 DARIAN LYON MD, Ot M86.471 CHRONIC OSTEOMYELITIS W DRAINING SINUS, 07/16/2018 DARIAN LYON MD Ot E11.42 TYPE 2 DIABETES MELLITUS WITH DIABETIC P 07/16/2018 DARIAN LYON MD Ot E11.621 TYPE 2 DIABETES MELLITUS WITH FOOT ULCER 07/16/2018 DARIAN LYON MD Ot L97.514 NON-PRS CHRONIC ULCER OTH PRT RIGHT FOOT 07/16/2018 DARIAN LYON MD, Ot M86.471 CHRONIC OSTEOMYELITIS W DRAINING SINUS, 07/25/2018 DARIAN LYON MD Ot E11.42 TYPE 2 DIABETES MELLITUS WITH DIABETIC P 07/25/2018 DARIAN LYON MD Ot E11.621 TYPE 2 DIABETES MELLITUS WITH FOOT ULCER 07/25/2018 DARIAN LYON MD Ot E11.65 TYPE 2 DIABETES MELLITUS WITH HYPERGLYCE 07/25/2018 DARIAN LYON MD Ot L97.514 NON-PRS CHRONIC ULCER OTH PRT RIGHT FOOT 07/25/2018 DARIAN LYON MD, Ot M86.471 CHRONIC OSTEOMYELITIS W DRAINING SINUS, 07/25/2018 DARIAN LYON MD Ot E11.42 TYPE 2 DIABETES MELLITUS WITH DIABETIC P 07/25/2018 DARIAN LYON MD Ot E11.621 TYPE 2 DIABETES MELLITUS WITH FOOT ULCER 07/25/2018 DARIAN LYON MD Ot L97.514 NON-PRS CHRONIC ULCER OTH PRT RIGHT FOOT 07/25/2018 DARIAN LYON MD Ot M86.471 CHRONIC OSTEOMYELITIS W DRAINING SINUS, 07/25/2018 DARIAN LYON MD Ot E11.42 TYPE 2 DIABETES MELLITUS WITH DIABETIC P 07/25/2018 DARIAN LYON MD Ot E11.621 TYPE 2 DIABETES MELLITUS WITH FOOT ULCER 07/25/2018 DARIAN LYON MD Ot L97.514 NON-PRS CHRONIC ULCER OTH PRT RIGHT FOOT 07/25/2018 DARIAN LYON MD Ot M86.471 CHRONIC OSTEOMYELITIS W DRAINING SINUS, 07/25/2018 DARIAN LYON MD Ot E11.42 TYPE 2 DIABETES MELLITUS WITH DIABETIC P 07/25/2018 DARIAN LYON MD Ot E11.621 TYPE 2 DIABETES MELLITUS WITH FOOT ULCER 07/25/2018 DARIAN LYON MD Ot E11.65 TYPE 2 DIABETES MELLITUS WITH HYPERGLYCE 07/25/2018 DARIAN LYON MD Ot L97.514 NON-PRS CHRONIC ULCER OTH PRT RIGHT FOOT 07/25/2018 DARIAN LYON MD Ot M86.471 CHRONIC OSTEOMYELITIS W DRAINING SINUS, 07/25/2018 DARIAN LYON MD Ot E11.42 TYPE 2 DIABETES MELLITUS WITH DIABETIC P 07/25/2018 DARIAN LYON MD Ot E11.621 TYPE 2 DIABETES MELLITUS WITH FOOT ULCER 07/25/2018 DARIAN LYON MD, Ot L97.514 NON-PRS CHRONIC ULCER OTH PRT RIGHT FOOT 07/25/2018 DARIAN LYON MD, Ot M86.471 CHRONIC OSTEOMYELITIS W DRAINING SINUS, 07/28/2018 DARIAN LYON MD Ot E11.42 TYPE 2 DIABETES MELLITUS WITH DIABETIC P 07/28/2018 DARIAN LYON MD Ot E11.621 TYPE 2 DIABETES MELLITUS WITH FOOT ULCER 07/28/2018 DARIAN LYON MD Ot L97.514 NON-PRS CHRONIC ULCER OTH PRT RIGHT FOOT 07/28/2018 DARIAN LYON MD Ot M86.471 CHRONIC OSTEOMYELITIS W DRAINING SINUS, 07/29/2018 DARIAN LYON MD Ot E11.42 TYPE 2 DIABETES MELLITUS WITH DIABETIC P 07/29/2018 DARIAN LYON MD Ot E11.621 TYPE 2 DIABETES MELLITUS WITH FOOT ULCER 07/29/2018 DARIAN LYON MD Ot E11.65 TYPE 2 DIABETES MELLITUS WITH HYPERGLYCE 07/29/2018 DARIAN LYON MD Ot L97.514 NON-PRS CHRONIC ULCER OTH PRT RIGHT FOOT 07/29/2018 DARIAN LYON MD, Ot M86.471 CHRONIC OSTEOMYELITIS W DRAINING SINUS, 07/29/2018 DARIAN LYON MD Ot E11.42 TYPE 2 DIABETES MELLITUS WITH DIABETIC P 07/29/2018 DARIAN LYON MD Ot E11.621 TYPE 2 DIABETES MELLITUS WITH FOOT ULCER 07/29/2018 DARIAN LYON MD Ot L97.514 NON-PRS CHRONIC ULCER OTH PRT RIGHT FOOT 07/29/2018 DARIAN LYON MD, Ot M86.471 CHRONIC OSTEOMYELITIS W DRAINING SINUS, 07/29/2018 DARIAN LYON MD Ot E11.42 TYPE 2 DIABETES MELLITUS WITH DIABETIC P 07/29/2018 DARIAN LYON MD, Ot E11.621 TYPE 2 DIABETES MELLITUS WITH FOOT ULCER 07/29/2018 DARIAN LYON MD Ot L97.514 NON-PRS CHRONIC ULCER OTH PRT RIGHT FOOT 07/29/2018 DARIAN LYON MD, Ot M86.471 CHRONIC OSTEOMYELITIS W DRAINING SINUS, 07/30/2018 DARIAN LYON MD, Ot E11.42 TYPE 2 DIABETES MELLITUS WITH DIABETIC P 07/30/2018 DARIAN LYON MD, Ot E11.621 TYPE 2 DIABETES MELLITUS WITH FOOT ULCER 07/30/2018 DARIAN LYON MD, Ot L97.514 NON-PRS CHRONIC ULCER OTH PRT RIGHT FOOT 07/30/2018 DARIAN LYON MD, Ot M86.471 CHRONIC OSTEOMYELITIS W DRAINING SINUS, 08/08/2018 DARIAN LYON MD Ot E11.42 TYPE 2 DIABETES MELLITUS WITH DIABETIC P 08/08/2018 DARIAN LYON MD Ot E11.621 TYPE 2 DIABETES MELLITUS WITH FOOT ULCER 08/08/2018 DARIAN LYON MD Ot L97.512 NON-PRS CHRONIC ULCER OTH PRT RIGHT FOOT 08/08/2018 DARIAN LYON MD, Ot M86.471 CHRONIC OSTEOMYELITIS W DRAINING SINUS, 08/19/2018 DARIAN LYON MD, Ot E11.42 TYPE 2 DIABETES MELLITUS WITH DIABETIC P 08/19/2018 DARIAN LYON MD Ot E11.621 TYPE 2 DIABETES MELLITUS WITH FOOT ULCER 08/19/2018 DARIAN LYON MD Ot L97.514 NON-PRS CHRONIC ULCER OTH PRT RIGHT FOOT 08/19/2018 DARIAN LYON MD, Ot M86.471 CHRONIC OSTEOMYELITIS W DRAINING SINUS, 08/19/2018 DARIAN LYON MD Ot E11.42 TYPE 2 DIABETES MELLITUS WITH DIABETIC P 08/19/2018 DARIAN LYON MD Ot E11.621 TYPE 2 DIABETES MELLITUS WITH FOOT ULCER 08/19/2018 DARIAN LYON MD Ot L97.514 NON-PRS CHRONIC ULCER OTH PRT RIGHT FOOT 08/19/2018 DARIAN LYON MD, Ot M86.471 CHRONIC OSTEOMYELITIS W DRAINING SINUS, 08/19/2018 DARIAN LYON MD Ot E11.42 TYPE 2 DIABETES MELLITUS WITH DIABETIC P 08/19/2018 DARIAN LYON MD, Ot E11.621 TYPE 2 DIABETES MELLITUS WITH FOOT ULCER 08/19/2018 DARIAN LYON MD Ot E11.65 TYPE 2 DIABETES MELLITUS WITH HYPERGLYCE 08/19/2018 DARIAN LYON MD Ot L97.514 NON-PRS CHRONIC ULCER OTH PRT RIGHT FOOT 08/19/2018 DARIAN LYON MD, Ot M86.471 CHRONIC OSTEOMYELITIS W DRAINING SINUS, 08/19/2018 DARIAN LYON MD Ot E11.42 TYPE 2 DIABETES MELLITUS WITH DIABETIC P 08/19/2018 DARIAN LYON MD, Ot E11.621 TYPE 2 DIABETES MELLITUS WITH FOOT ULCER 08/19/2018 DARIAN LYON MD, Ot L97.514 NON-PRS CHRONIC ULCER OTH PRT RIGHT FOOT 08/19/2018 DARIAN LYON MD, Ot M86.471 CHRONIC OSTEOMYELITIS W DRAINING SINUS, 08/19/2018 DARIAN LYON MD Ot E11.42 TYPE 2 DIABETES MELLITUS WITH DIABETIC P 08/19/2018 DARIAN LYON MD Ot E11.621 TYPE 2 DIABETES MELLITUS WITH FOOT ULCER 08/19/2018 DARIAN LYON MD Ot L97.514 NON-PRS CHRONIC ULCER OTH PRT RIGHT FOOT 08/19/2018 DARIAN LYON MD, Ot M86.471 CHRONIC OSTEOMYELITIS W DRAINING SINUS, 08/19/2018 DARIAN LYON MD Ot E11.42 TYPE 2 DIABETES MELLITUS WITH DIABETIC P 08/19/2018 DARIAN LYON MD Ot E11.621 TYPE 2 DIABETES MELLITUS WITH FOOT ULCER 08/19/2018 DARIAN LYON MD Ot L97.514 NON-PRS CHRONIC ULCER OTH PRT RIGHT FOOT 08/19/2018 DARINA LYON MD Ot M86.471 CHRONIC OSTEOMYELITIS W DRAINING SINUS, 08/19/2018 DARIAN LYON MD Ot E11.42 TYPE 2 DIABETES MELLITUS WITH DIABETIC P 08/19/2018 DARIAN LYON MD Ot E11.621 TYPE 2 DIABETES MELLITUS WITH FOOT ULCER 08/19/2018 DARIAN LYON MD Ot L97.512 NON-PRS CHRONIC ULCER OTH PRT RIGHT FOOT 08/19/2018 DARIAN LYON MD Ot M86.471 CHRONIC OSTEOMYELITIS W DRAINING SINUS, 08/19/2018 DARIAN LYON MD Ot E11.42 TYPE 2 DIABETES MELLITUS WITH DIABETIC P 08/19/2018 DARIAN LYON MD, Ot E11.621 TYPE 2 DIABETES MELLITUS WITH FOOT ULCER 08/19/2018 DARIAN LYON MD, Ot L97.516 NON-PRS [facility] OT PRT R FOOT WITH BNE 08/19/2018 DARIAN LYON MD, Ot M86.471 CHRONIC OSTEOMYELITIS W DRAINING SINUS, 08/21/2018 DARIAN LYON MD Ot E11.42 TYPE 2 DIABETES MELLITUS WITH DIABETIC P 08/21/2018 DARIAN LYON MD, Ot E11.621 TYPE 2 DIABETES MELLITUS WITH FOOT ULCER 08/21/2018 DARIAN LYON MD, Ot L97.516 NON-PRS [facility] PRT R FOOT WITH BNE 08/21/2018 DARIAN LYON MD, Ot M86.471 CHRONIC OSTEOMYELITIS W DRAINING SINUS, 08/26/2018 DARIAN LYON MD Ot E11.42 TYPE 2 DIABETES MELLITUS WITH DIABETIC P 08/26/2018 DARIAN LYON MD, Ot E11.621 TYPE 2 DIABETES MELLITUS WITH FOOT ULCER 08/26/2018 DARIAN LYON MD Ot E11.65 TYPE 2 DIABETES MELLITUS WITH HYPERGLYCE 08/26/2018 DARIAN LYON MD Ot L97.514 NON-PRS CHRONIC ULCER OTH PRT RIGHT FOOT 08/26/2018 DARIAN LYON MD, Ot M86.471 CHRONIC OSTEOMYELITIS W DRAINING SINUS, 08/26/2018 DARIAN LYON MD Ot E11.42 TYPE 2 DIABETES MELLITUS WITH DIABETIC P 08/26/2018 DARIAN LYON MD Ot E11.621 TYPE 2 DIABETES MELLITUS WITH FOOT ULCER 08/26/2018 DARIAN LYON MD Ot L97.514 NON-PRS CHRONIC ULCER OTH PRT RIGHT FOOT 08/26/2018 DARIAN LYON MD, Ot M86.471 CHRONIC OSTEOMYELITIS W DRAINING SINUS, 08/26/2018 DARIAN LYON MD Ot E11.42 TYPE 2 DIABETES MELLITUS WITH DIABETIC P 08/26/2018 DARIAN LYON MD Ot E11.621 TYPE 2 DIABETES MELLITUS WITH FOOT ULCER 08/26/2018 DARIAN LYON MD Ot L97.514 NON-PRS CHRONIC ULCER OTH PRT RIGHT FOOT 08/26/2018 DARIAN LYON MD, Ot M86.471 CHRONIC OSTEOMYELITIS W DRAINING SINUS, 08/26/2018 DARIAN LYON MD Ot E11.42 TYPE 2 DIABETES MELLITUS WITH DIABETIC P 08/26/2018 DARIAN LYON MD Ot E11.621 TYPE 2 DIABETES MELLITUS WITH FOOT ULCER 08/26/2018 DARIAN LYON MD Ot L97.514 NON-PRS CHRONIC ULCER OTH PRT RIGHT FOOT 08/26/2018 DARIAN LYON MD, Ot M86.471 CHRONIC OSTEOMYELITIS W DRAINING SINUS, 08/26/2018 DARIAN LYON MD Ot E11.42 TYPE 2 DIABETES MELLITUS WITH DIABETIC P 08/26/2018 DARIAN LYON MD, Ot E11.621 TYPE 2 DIABETES MELLITUS WITH FOOT ULCER 08/26/2018 DARIAN LYON MD Ot L97.512 NON-PRS CHRONIC ULCER OTH PRT RIGHT FOOT 08/26/2018 DARIAN LYON MD, Ot M86.471 CHRONIC OSTEOMYELITIS W DRAINING SINUS, 08/26/2018 DARIAN LYON MD Ot E11.42 TYPE 2 DIABETES MELLITUS WITH DIABETIC P 08/26/2018 DARIAN LYON MD Ot E11.621 TYPE 2 DIABETES MELLITUS WITH FOOT ULCER 08/26/2018 DARIAN LYON MD Ot L97.516 NON-PRS [facility] OT PRT R FOOT WITH BNE 08/26/2018 DARIAN LYON MD, Ot M86.471 CHRONIC OSTEOMYELITIS W DRAINING SINUS, 08/26/2018 DARIAN LYON MD Ot E11.42 TYPE 2 DIABETES MELLITUS WITH DIABETIC P 08/26/2018 DARIAN LYON MD Ot E11.621 TYPE 2 DIABETES MELLITUS WITH FOOT ULCER 08/26/2018 DARIAN LYON MD Ot L97.516 NON-PRS [facility] OT PRT R FOOT WITH BNE 08/26/2018 DARIAN LYON MD, Ot M86.471 CHRONIC OSTEOMYELITIS W DRAINING SINUS, 08/28/2018 DARIAN LYON MD Ot E11.42 TYPE 2 DIABETES MELLITUS WITH DIABETIC P 08/28/2018 DARIAN LYON MD Ot E11.621 TYPE 2 DIABETES MELLITUS WITH FOOT ULCER 08/28/2018 DARIAN LYON MD Ot L97.512 NON-PRS CHRONIC ULCER OTH PRT RIGHT FOOT 08/28/2018 DARIAN LYON MD, Ot M86.471 CHRONIC OSTEOMYELITIS W DRAINING SINUS, 09/09/2018 DARIAN LYON MD Ot E11.42 TYPE 2 DIABETES MELLITUS WITH DIABETIC P 09/09/2018 DARIAN LYON MD, Ot E11.621 TYPE 2 DIABETES MELLITUS WITH FOOT ULCER 09/09/2018 DARIAN LYON MD, Ot L97.512 NON-PRS CHRONIC ULCER OTH PRT RIGHT FOOT 09/09/2018 DARIAN LYON MD, Ot M86.471 CHRONIC OSTEOMYELITIS W DRAINING SINUS, 09/11/2018 DARIAN LYON MD Ot E11.42 TYPE 2 DIABETES MELLITUS WITH DIABETIC P 09/11/2018 DARIAN LYON MD, Ot E11.621 TYPE 2 DIABETES MELLITUS WITH FOOT ULCER 09/11/2018 DARIAN LYON MD, Ot E11.69 TYPE 2 DIABETES MELLITUS WITH OTHER SPEC 09/11/2018 DARIAN LYON MD, Ot L97.512 NON-PRS CHRONIC ULCER OTH PRT RIGHT FOOT 09/11/2018 DARIAN LYON MD, Ot M86.471 CHRONIC OSTEOMYELITIS W DRAINING SINUS, 09/11/2018 DARIAN LYON MD Ot E11.42 TYPE 2 DIABETES MELLITUS WITH DIABETIC P 09/11/2018 DARIAN LYON MD, Ot E11.621 TYPE 2 DIABETES MELLITUS WITH FOOT ULCER 09/11/2018 DARIAN LYON MD, Ot E11.69 TYPE 2 DIABETES MELLITUS WITH OTHER SPEC 09/11/2018 DARIAN LYON MD, Ot L97.512 NON-PRS CHRONIC ULCER OTH PRT RIGHT FOOT 09/11/2018 DARIAN LYON MD, Ot M86.471 CHRONIC OSTEOMYELITIS W DRAINING SINUS, 09/21/2018 DARIAN LYON MD Ot E11.42 TYPE 2 DIABETES MELLITUS WITH DIABETIC P 09/21/2018 DARIAN LYON MD, Ot E11.621 TYPE 2 DIABETES MELLITUS WITH FOOT ULCER 09/21/2018 DARIAN LYON MD, Ot E11.69 TYPE 2 DIABETES MELLITUS WITH OTHER SPEC 09/21/2018 DARIAN LYON MD, Ot L97.512 NON-PRS CHRONIC ULCER OTH PRT RIGHT FOOT 09/21/2018 DARIAN LYON MD, Ot M86.471 CHRONIC OSTEOMYELITIS W DRAINING SINUS, 09/22/2018 DARIAN LYON MD Ot E11.42 TYPE 2 DIABETES MELLITUS WITH DIABETIC P 09/22/2018 DARIAN LYON MD Ot E11.621 TYPE 2 DIABETES MELLITUS WITH FOOT ULCER 09/22/2018 DARIAN LYON MD, Ot E11.69 TYPE 2 DIABETES MELLITUS WITH OTHER SPEC 09/22/2018 DARIAN LYON MD, Ot L97.512 NON-PRS CHRONIC ULCER OTH PRT RIGHT FOOT 09/22/2018 DARIAN LYON MD, Ot M86.471 CHRONIC OSTEOMYELITIS W DRAINING SINUS, 09/25/2018 DARIAN LYON MD Ot E11.42 TYPE 2 DIABETES MELLITUS WITH DIABETIC P 09/25/2018 DARIAN LYON MD, Ot E11.621 TYPE 2 DIABETES MELLITUS WITH FOOT ULCER 09/25/2018 DARIAN LYON MD, Ot E11.69 TYPE 2 DIABETES MELLITUS WITH OTHER SPEC 09/25/2018 DARIAN LYON MD, Ot L97.512 NON-PRS CHRONIC ULCER OTH PRT RIGHT FOOT 09/25/2018 DARIAN LYON MD, Ot M86.471 CHRONIC OSTEOMYELITIS W DRAINING SINUS, 09/29/2018 DARIAN LYON MD, Ot E11.42 TYPE 2 DIABETES MELLITUS WITH DIABETIC P 09/29/2018 DARIAN LYON MD, Ot E11.621 TYPE 2 DIABETES MELLITUS WITH FOOT ULCER 09/29/2018 DARIAN LYON MD, Ot L97.512 NON-PRS CHRONIC ULCER OTH PRT RIGHT FOOT 09/29/2018 DARIAN LYON MD, Ot M86.471 CHRONIC OSTEOMYELITIS W DRAINING SINUS, 09/29/2018 DARIAN LYON MD Ot E11.42 TYPE 2 DIABETES MELLITUS WITH DIABETIC P 09/29/2018 DARIAN LYON MD Ot E11.621 TYPE 2 DIABETES MELLITUS WITH FOOT ULCER 09/29/2018 DARIAN LYON MD Ot E11.69 TYPE 2 DIABETES MELLITUS WITH OTHER SPEC 09/29/2018 DARIAN LYON MD Ot L97.512 NON-PRS CHRONIC ULCER OTH PRT RIGHT FOOT 09/29/2018 DARIAN LYON MD, Ot M86.471 CHRONIC OSTEOMYELITIS W DRAINING SINUS, 09/29/2018 DARIAN LYON MD Ot E11.42 TYPE 2 DIABETES MELLITUS WITH DIABETIC P 09/29/2018 DARIAN LYON MD Ot E11.621 TYPE 2 DIABETES MELLITUS WITH FOOT ULCER 09/29/2018 DARIAN LYON MD, Ot E11.69 TYPE 2 DIABETES MELLITUS WITH OTHER SPEC 09/29/2018 DARIAN LYON MD Ot L97.512 NON-PRS CHRONIC ULCER OTH PRT RIGHT FOOT 09/29/2018 DARIAN LYON MD, Ot M86.471 CHRONIC OSTEOMYELITIS W DRAINING SINUS, 09/29/2018 DARIAN LYON MD Ot E11.42 TYPE 2 DIABETES MELLITUS WITH DIABETIC P 09/29/2018 DARIAN LYON MD, Ot E11.621 TYPE 2 DIABETES MELLITUS WITH FOOT ULCER 09/29/2018 DARIAN LYON MD, Ot E11.69 TYPE 2 DIABETES MELLITUS WITH OTHER SPEC 09/29/2018 DARIAN LYON MD, Ot L97.512 NON-PRS CHRONIC ULCER OTH PRT RIGHT FOOT 09/29/2018 DARIAN LYON MD, Ot M86.471 CHRONIC OSTEOMYELITIS W DRAINING SINUS, 09/29/2018 DARIAN LYON MD Ot E11.42 TYPE 2 DIABETES MELLITUS WITH DIABETIC P 09/29/2018 DARIAN LYON MD, Ot E11.621 TYPE 2 DIABETES MELLITUS WITH FOOT ULCER 09/29/2018 DARIAN LYON MD, Ot L97.512 NON-PRS CHRONIC ULCER OTH PRT RIGHT FOOT 09/29/2018 DARIAN LYON MD, Ot M86.471 CHRONIC OSTEOMYELITIS W DRAINING SINUS, 09/29/2018 DARIAN LYON MD, Ot E11.42 TYPE 2 DIABETES MELLITUS WITH DIABETIC P 09/29/2018 DARIAN LYON MD, Ot E11.621 TYPE 2 DIABETES MELLITUS WITH FOOT ULCER 09/29/2018 DARIAN LYON MD Ot L97.512 NON-PRS CHRONIC ULCER OTH PRT RIGHT FOOT 09/29/2018 DARIAN LYON MD, Ot M86.471 CHRONIC OSTEOMYELITIS W DRAINING SINUS, 09/29/2018 DARIAN LYON MD, Ot E11.42 TYPE 2 DIABETES MELLITUS WITH DIABETIC P 09/29/2018 DARIAN LYON MD Ot E11.621 TYPE 2 DIABETES MELLITUS WITH FOOT ULCER 09/29/2018 DARIAN LYON MD Ot L97.516 NON-PRS [facility] PRT R FOOT WITH BNE 09/29/2018 DARIAN LYON MD, Ot M86.471 CHRONIC OSTEOMYELITIS W DRAINING SINUS, 09/29/2018 DARIAN LYON MD Ot E11.42 TYPE 2 DIABETES MELLITUS WITH DIABETIC P 09/29/2018 DARIAN LYON MD, Ot E11.621 TYPE 2 DIABETES MELLITUS WITH FOOT ULCER 09/29/2018 DARIAN LYON MD Ot L97.516 NON-PRS [facility] OT PRT R FOOT WITH BNE 09/29/2018 DARIAN LYON MD, Ot M86.471 CHRONIC OSTEOMYELITIS W DRAINING SINUS, Procedures There is no data. Results Test Result Range Complete blood count (CBC) with automated white blood cell (WBC) differential - 07/01/18 18:30 Blood leukocytes automated count (number/volume) 19.4 10*3/uL 4.3-11.0 Blood erythrocytes automated count (number/volume) 4.53 10*6/uL 4.35-5.85 Venous blood hemoglobin measurement (mass/volume) 13.2 g/dL 13.3-17.7 Blood hematocrit (volume fraction) 38 % 40-54 Automated erythrocyte mean corpuscular volume 84 [foz_us] 80-99 Automated erythrocyte mean corpuscular hemoglobin (mass per erythrocyte) 29 pg 25-34 Automated erythrocyte mean corpuscular hemoglobin concentration measurement (mass/volume) 35 g/dL 32-36 Automated erythrocyte distribution width ratio 12.2 % 10.0- 14.5 Automated blood platelet count (count/volume) 293 10*3/uL 130-400 Automated blood platelet mean volume measurement 9.8 [foz_us] 7.4-10.4 Automated blood neutrophils/100 leukocytes 84 % 42-75 Automated blood lymphocytes/100 leukocytes 10 % 12-44 Blood monocytes/100 leukocytes 6 % 0-12 Automated blood eosinophils/100 leukocytes 0 % 0-10 Automated blood basophils/100 leukocytes 0 % 0-10 Blood neutrophils automated count (number/volume) 16.2 10*3 1.8-7.8 Blood lymphocytes automated count (number/volume) 2.0 10*3 1.0-4.0 Blood monocytes automated count (number/volume) 1.1 10*3 0.0- 1.0 Automated eosinophil count 0.0 10*3/uL 0.0-0.3 Automated blood basophil count (count/volume) 0.1 10*3/uL 0.0-0.1 Blood lactic acid measurement (moles/volume) - 07/01/18 18:30 Blood lactic acid measurement (moles/volume) 1.21 mmol/L 0.50- 2.00 Comprehensive metabolic panel - 07/01/18 18:30 Serum or plasma sodium measurement (moles/volume) 136 mmol/L 135-145 Serum or plasma potassium measurement (moles/volume) 3.4 mmol/L 3.6-5.0 Serum or plasma chloride measurement (moles/volume) 98 mmol/L 98-107 Carbon dioxide 22 mmol/L 21-32 Serum or plasma anion gap determination (moles/volume) 16 mmol/L 5-14 Serum or plasma urea nitrogen measurement (mass/volume) 25 mg/dL 7-18 Serum or plasma creatinine measurement (mass/volume) 1.49 mg/dL 0.60-1.30 Serum or plasma urea nitrogen/creatinine mass ratio 17 NRG Serum or plasma creatinine measurement with calculation of estimated glomerular filtration rate 56 NRG Serum or plasma glucose measurement (mass/volume) 310 mg/dL 70-105 Serum or plasma calcium measurement (mass/volume) 10.1 mg/dL 8.5-10.1 Serum or plasma total bilirubin measurement (mass/volume) 1.1 mg/dL 0.1-1.0 Serum or plasma alkaline phosphatase measurement (enzymatic activity/volume) 117 U/L 40-136 Serum or plasma aspartate aminotransferase measurement (enzymatic activity/volume) 23 U/L 5-34 Serum or plasma alanine aminotransferase measurement (enzymatic activity/volume) 16 U/L 0-55 Serum or plasma protein measurement (mass/volume) 7.7 g/dL 6.4-8.2 Serum or plasma albumin measurement (mass/volume) 4.0 g/dL 3.2-4.5 CALCIUM CORRECTED 10.1 mg/dL 8.5-10.1 Blood manual differential performed detection - 07/01/18 18:30 Blood monocytes/100 leukocytes 4 % NRG Manual blood segmented neutrophils/100 leukocytes 85 % NR Manual blood lymphocytes/100 leukocytes 11 % NR Blood erythrocyte morphology finding identification NORMAL [facility] Bacterial blood culture - 07/01/18 18:30 Bacterial blood culture NG [facility] Bacterial blood culture - 07/01/18 18:40 Bacterial blood culture NG [facility] Gram stain microscopy - 07/01/18 19:25 Gram stain microscopy Moderate Gram negative bacilli [facility] Bacteria identification in wound by culture - 07/01/18 19:25 Bacteria identification in wound by culture [id number] [facility] FREE TEXT EXTERNAL SEE COMMENTS NR QUANTITY OF GROWTH Isolated NR Capillary blood glucose measurement by glucometer (mass/volume) - 07/01/18 21:01 Capillary blood glucose measurement by glucometer (mass/volume) 263 mg/dL 70-110 Complete blood count (CBC) with automated white blood cell (WBC) differential - 07/02/18 06:05 Blood leukocytes automated count (number/volume) 15.1 10*3/uL 4.3-11.0 Blood erythrocytes automated count (number/volume) 3.79 10*6/uL 4.35-5.85 Venous blood hemoglobin measurement (mass/volume) 11.2 g/dL 13.3-17.7 Blood hematocrit (volume fraction) 33 % 40-54 Automated erythrocyte mean corpuscular volume 87 [foz_us] 80-99 Automated erythrocyte mean corpuscular hemoglobin (mass per erythrocyte) 30 pg 25-34 Automated erythrocyte mean corpuscular hemoglobin concentration measurement (mass/volume) 34 g/dL 32-36 Automated erythrocyte distribution width ratio 12.4 % 10.0- 14.5 Automated blood platelet count (count/volume) 257 10*3/uL 130-400 Automated blood platelet mean volume measurement 9.3 [foz_us] 7.4-10.4 Automated blood neutrophils/100 leukocytes 70 % 42-75 Automated blood lymphocytes/100 leukocytes 21 % 12-44 Blood monocytes/100 leukocytes 8 % 0-12 Automated blood eosinophils/100 leukocytes 1 % 0-10 Automated blood basophils/100 leukocytes 0 % 0-10 Blood neutrophils automated count (number/volume) 10.6 10*3 1.8-7.8 Blood lymphocytes automated count (number/volume) 3.1 10*3 1.0-4.0 Blood monocytes automated count (number/volume) 1.2 10*3 0.0- 1.0 Automated eosinophil count 0.2 10*3/uL 0.0-0.3 Automated blood basophil count (count/volume) 0.1 10*3/uL 0.0-0.1 Comprehensive metabolic panel - 07/02/18 06:05 Serum or plasma sodium measurement (moles/volume) 136 mmol/L 135-145 Serum or plasma potassium measurement (moles/volume) 4.0 mmol/L 3.6-5.0 Serum or plasma chloride measurement (moles/volume) 106 mmol/L 98-107 Carbon dioxide 22 mmol/L 21-32 Serum or plasma anion gap determination (moles/volume) 8 mmol/L 5-14 Serum or plasma urea nitrogen measurement (mass/volume) 18 mg/dL 7-18 Serum or plasma creatinine measurement (mass/volume) 1.19 mg/dL 0.60-1.30 Serum or plasma urea nitrogen/creatinine mass ratio 15 NRG Serum or plasma creatinine measurement with calculation of estimated glomerular filtration rate > NRG Serum or plasma glucose measurement (mass/volume) 263 mg/dL 70-105 Serum or plasma calcium measurement (mass/volume) 8.3 mg/dL 8.5-10.1 Serum or plasma total bilirubin measurement (mass/volume) 0.7 mg/dL 0.1-1.0 Serum or plasma alkaline phosphatase measurement (enzymatic activity/volume) 96 U/L 40-136 Serum or plasma aspartate aminotransferase measurement (enzymatic activity/volume) 17 U/L 5-34 Serum or plasma alanine aminotransferase measurement (enzymatic activity/volume) 12 U/L 0-55 Serum or plasma protein measurement (mass/volume) 5.9 g/dL 6.4-8.2 Serum or plasma albumin measurement (mass/volume) 3.0 g/dL 3.2-4.5 CALCIUM CORRECTED 9.1 mg/dL 8.5-10.1 Capillary blood glucose measurement by glucometer (mass/volume) - 07/02/18 06:10 Capillary blood glucose measurement by glucometer (mass/volume) 268 mg/dL 70-110 Capillary blood glucose measurement by glucometer (mass/volume) - 07/02/18 10:22 Capillary blood glucose measurement by glucometer (mass/volume) 144 mg/dL 70-110 Capillary blood glucose measurement by glucometer (mass/volume) - 07/02/18 15:47 Capillary blood glucose measurement by glucometer (mass/volume) 269 mg/dL 70-110 Capillary blood glucose measurement by glucometer (mass/volume) - 07/02/18 20:50 Capillary blood glucose measurement by glucometer (mass/volume) 239 mg/dL 70-110 Capillary blood glucose measurement by glucometer (mass/volume) - 07/03/18 05:34 Capillary blood glucose measurement by glucometer (mass/volume) 243 mg/dL 70-110 Complete blood count (CBC) with automated white blood cell (WBC) differential - 07/03/18 06:00 Blood leukocytes automated count (number/volume) 10.4 10*3/uL 4.3-11.0 Blood erythrocytes automated count (number/volume) 4.02 10*6/uL 4.35-5.85 Venous blood hemoglobin measurement (mass/volume) 11.6 g/dL 13.3-17.7 Blood hematocrit (volume fraction) 35 % 40-54 Automated erythrocyte mean corpuscular volume 86 [foz_us] 80-99 Automated erythrocyte mean corpuscular hemoglobin (mass per erythrocyte) 29 pg 25-34 Automated erythrocyte mean corpuscular hemoglobin concentration measurement (mass/volume) 33 g/dL 32-36 Automated erythrocyte distribution width ratio 12.2 % 10.0- 14.5 Automated blood platelet count (count/volume) 269 10*3/uL 130-400 Automated blood platelet mean volume measurement 9.4 [foz_us] 7.4-10.4 Automated blood neutrophils/100 leukocytes 68 % 42-75 Automated blood lymphocytes/100 leukocytes 22 % 12-44 Blood monocytes/100 leukocytes 6 % 0-12 Automated blood eosinophils/100 leukocytes 3 % 0-10 Automated blood basophils/100 leukocytes 1 % 0-10 Blood neutrophils automated count (number/volume) 7.1 10*3 1.8-7.8 Blood lymphocytes automated count (number/volume) 2.3 10*3 1.0-4.0 Blood monocytes automated count (number/volume) 0.6 10*3 0.0- 1.0 Automated eosinophil count 0.4 10*3/uL 0.0-0.3 Automated blood basophil count (count/volume) 0.1 10*3/uL 0.0-0.1 Comprehensive metabolic panel - 07/03/18 06:00 Serum or plasma sodium measurement (moles/volume) 136 mmol/L 135-145 Serum or plasma potassium measurement (moles/volume) 3.9 mmol/L 3.6-5.0 Serum or plasma chloride measurement (moles/volume) 106 mmol/L 98-107 Carbon dioxide 22 mmol/L 21-32 Serum or plasma anion gap determination (moles/volume) 8 mmol/L 5-14 Serum or plasma urea nitrogen measurement (mass/volume) 10 mg/dL 7-18 Serum or plasma creatinine measurement (mass/volume) 0.97 mg/dL 0.60-1.30 Serum or plasma urea nitrogen/creatinine mass ratio 10 NRG Serum or plasma creatinine measurement with calculation of estimated glomerular filtration rate > NRG Serum or plasma glucose measurement (mass/volume) 264 mg/dL 70-105 Serum or plasma calcium measurement (mass/volume) 8.9 mg/dL 8.5-10.1 Serum or plasma total bilirubin measurement (mass/volume) 0.3 mg/dL 0.1-1.0 Serum or plasma alkaline phosphatase measurement (enzymatic activity/volume) 91 U/L 40-136 Serum or plasma aspartate aminotransferase measurement (enzymatic activity/volume) 15 U/L 5-34 Serum or plasma alanine aminotransferase measurement (enzymatic activity/volume) 15 U/L 0-55 Serum or plasma protein measurement (mass/volume) 6.2 g/dL 6.4-8.2 Serum or plasma albumin measurement (mass/volume) 3.2 g/dL 3.2-4.5 CALCIUM CORRECTED 9.5 mg/dL 8.5-10.1 Vancomycin trough - 07/03/18 06:00 Vancomycin trough 13.9 ug/mL 10.0-20.0 Capillary blood glucose measurement by glucometer (mass/volume) - 07/03/18 11:28 Capillary blood glucose measurement by glucometer (mass/volume) 314 mg/dL 70-110 Capillary blood glucose measurement by glucometer (mass/volume) - 07/03/18 15:57 Capillary blood glucose measurement by glucometer (mass/volume) 220 mg/dL 70-110 Capillary blood glucose measurement by glucometer (mass/volume) - 07/03/18 20:45 Capillary blood glucose measurement by glucometer (mass/volume) 216 mg/dL 70-110 Complete blood count (CBC) with automated white blood cell (WBC) differential - 07/04/18 05:15 Blood leukocytes automated count (number/volume) 9.4 10*3/uL 4.3-11.0 Blood erythrocytes automated count (number/volume) 4.02 10*6/uL 4.35-5.85 Venous blood hemoglobin measurement (mass/volume) 11.8 g/dL 13.3-17.7 Blood hematocrit (volume fraction) 34 % 40-54 Automated erythrocyte mean corpuscular volume 86 [foz_us] 80-99 Automated erythrocyte mean corpuscular hemoglobin (mass per erythrocyte) 29 pg 25-34 Automated erythrocyte mean corpuscular hemoglobin concentration measurement (mass/volume) 34 g/dL 32-36 Automated erythrocyte distribution width ratio 12.3 % 10.0- 14.5 Automated blood platelet count (count/volume) 340 10*3/uL 130-400 Automated blood platelet mean volume measurement 9.3 [foz_us] 7.4-10.4 Automated blood neutrophils/100 leukocytes 67 % 42-75 Automated blood lymphocytes/100 leukocytes 24 % 12-44 Blood monocytes/100 leukocytes 5 % 0-12 Automated blood eosinophils/100 leukocytes 4 % 0-10 Automated blood basophils/100 leukocytes 1 % 0-10 Blood neutrophils automated count (number/volume) 6.3 10*3 1.8-7.8 Blood lymphocytes automated count (number/volume) 2.2 10*3 1.0-4.0 Blood monocytes automated count (number/volume) 0.5 10*3 0.0- 1.0 Automated eosinophil count 0.4 10*3/uL 0.0-0.3 Automated blood basophil count (count/volume) 0.1 10*3/uL 0.0-0.1 Comprehensive metabolic panel - 07/04/18 05:15 Serum or plasma sodium measurement (moles/volume) 138 mmol/L 135-145 Serum or plasma potassium measurement (moles/volume) 4.0 mmol/L 3.6-5.0 Serum or plasma chloride measurement (moles/volume) 107 mmol/L 98-107 Carbon dioxide 22 mmol/L 21-32 Serum or plasma anion gap determination (moles/volume) 9 mmol/L 5-14 Serum or plasma urea nitrogen measurement (mass/volume) 10 mg/dL 7-18 Serum or plasma creatinine measurement (mass/volume) 1.00 mg/dL 0.60-1.30 Serum or plasma urea nitrogen/creatinine mass ratio 10 NRG Serum or plasma creatinine measurement with calculation of estimated glomerular filtration rate > NRG Serum or plasma glucose measurement (mass/volume) 195 mg/dL 70-105 Serum or plasma calcium measurement (mass/volume) 9.4 mg/dL 8.5-10.1 Serum or plasma total bilirubin measurement (mass/volume) 0.3 mg/dL 0.1-1.0 Serum or plasma alkaline phosphatase measurement (enzymatic activity/volume) 94 U/L 40-136 Serum or plasma aspartate aminotransferase measurement (enzymatic activity/volume) 13 U/L 5-34 Serum or plasma alanine aminotransferase measurement (enzymatic activity/volume) 13 U/L 0-55 Serum or plasma protein measurement (mass/volume) 6.8 g/dL 6.4-8.2 Serum or plasma albumin measurement (mass/volume) 3.3 g/dL 3.2-4.5 CALCIUM CORRECTED 10.0 mg/dL 8.5-10.1 Capillary blood glucose measurement by glucometer (mass/volume) - 07/04/18 05:41 Capillary blood glucose measurement by glucometer (mass/volume) 185 mg/dL 70-110 Capillary blood glucose measurement by glucometer (mass/volume) - 07/04/18 11:03 Capillary blood glucose measurement by glucometer (mass/volume) 249 mg/dL 70-110 Gram stain microscopy - 07/08/18 15:31 Gram stain microscopy No bacteria seen NRG Bacteria identification in wound by culture - 07/08/18 15:31 Bacteria identification in wound by culture [id number] NRG FREE TEXT EXTERNAL SUSCEPTIBILITY REPORTED [id number]. NRG QUANTITY OF GROWTH Rare NRG RML Sensitivity Panel - 07/08/18 15:31 Gentamicin susceptibility test by minimum inhibitory concentration <= NRG Trimethoprim/sulfamethoxazole susceptibility test by minimum inhibitoryconcentration S NRG Levofloxacin susceptibility test by minimum inhibitory concentration <= NRG Ampicillin susceptibility test by minimum inhibitory concentration > NRG Cefazolin susceptibility test by minimum inhibitory concentration > NRG Ceftriaxone susceptibility test by minimum inhibitory concentration 32 NRG Piperacillin/tazobactam susceptibility test by minimum inhibitory concentration <= NRG Ciprofloxacin susceptibility test by minimum inhibitory concentration <= NRG Meropenem susceptibility test by minimum inhibitory concentration <= NRG Amoxicillin and clavulanate potassium susc NORMAN = NRG Encounters ACCT No. Visit Date/Time Discharge Status Pt. Type Provider Facility Loc./Unit Complaint [id number] 09/22/2018 14:59:00 09/22/2018 23:59:59 CLS Outpatient DARIAN LYON MD [facility] [id number] 09/15/2018 15:04:00 09/15/2018 23:59:59 CLS Outpatient DARIAN LYON MD [facility] [id number] 09/08/2018 15:03:00 09/08/2018 23:59:59 CLS Outpatient DARIAN LYON MD [facility] [id number] 09/02/2018 15:29:00 09/02/2018 23:59:59 CLS Outpatient DARIAN LYON MD [facility] [id number] 08/26/2018 15:30:00 08/26/2018 23:59:59 CLS Outpatient DARIAN LYON MD [facility] [id number] 08/19/2018 15:33:00 08/19/2018 23:59:59 CLS Outpatient DARIAN LYON MD [facility] [id number] 08/12/2018 15:32:00 08/12/2018 23:59:59 CLS Outpatient DARIAN LYON MD [facility] [id number] 08/05/2018 15:28:00 08/05/2018 23:59:59 CLS Outpatient DARIAN LYON MD [facility] [id number] 07/29/2018 15:35:00 07/29/2018 23:59:59 CLS Outpatient DARIAN LYON MD [facility] [id number] 07/22/2018 15:46:00 07/22/2018 23:59:59 CLS Outpatient DARIAN LYON MD [facility] [id number] 07/15/2018 15:29:00 07/15/2018 23:59:59 CLS Outpatient DARIAN LYON MD [facility] [id number] 07/08/2018 13:50:00 07/08/2018 23:59:59 CLS Outpatient DARIAN LYON MD [facility] [id number] 07/01/2018 17:05:00 07/04/2018 13:18:00 DIS Inpatient CARA CARMEN MD [facility] 4TH POSS SEPSIS,DIABETIC ULCER [id number] 09/29/2018 14:55:00 ACT Outpatient DARIAN LYON MD [facility]
== END 2018-09-30 03:50 | disposition home or self-care (01) ==
LOC: EDUNIT# 02:32 → ER 02:37
DX: E11.621 Type 2 diabetes mellitus with foot ulcer (principal); Z79.4 Long term (current) use of insulin
CPT/HCPCS: 82962; 99284

== ENCOUNTER → 2018-09-30 | Outpatient (CLI) | payer OTHER | LOC: WOUNDCARE 10:25 | PROVIDERS: ATTEND Surgery | DX: E11.621 Type 2 diabetes mellitus with foot ulcer (principal); L97.512 Non-pressure chronic ulcer of other part of right foot with fat layer exposed | CPT/HCPCS: 99212 ==

== ENCOUNTER → 2018-10-06 | Outpatient (CLI) | payer OTHER | LOC: WOUNDCARE 15:03 | PROVIDERS: ATTEND Surgery | DX: L97.512 Non-pressure chronic ulcer of other part of right foot with fat layer exposed (principal); E11.621 Type 2 diabetes mellitus with foot ulcer; E11.42 Type 2 diabetes mellitus with diabetic polyneuropathy; M86.471 Chronic osteomyelitis with draining sinus, right ankle and foot | CPT/HCPCS: 11042 ==

== ENCOUNTER → 2018-10-13 | Outpatient (CLI) | payer OTHER | LOC: WOUNDCARE 15:01 | PROVIDERS: ATTEND Surgery | DX: E11.621 Type 2 diabetes mellitus with foot ulcer (principal); E11.42 Type 2 diabetes mellitus with diabetic polyneuropathy; L97.512 Non-pressure chronic ulcer of other part of right foot with fat layer exposed; M86.471 Chronic osteomyelitis with draining sinus, right ankle and foot; E11.52 Type 2 diabetes mellitus with diabetic peripheral angiopathy with gangrene; I96 Gangrene, not elsewhere classified | CPT/HCPCS: 11042 ==

== ENCOUNTER 2019-09-04 13:54 | Outpatient (RCR) | payer SELFPAY ==
[2019-09-04 15:04] LABS: SEMEN VOLUME 0.8 ML (1.5-5.0)
== END 2019-12-03 | disposition home or self-care (01) ==
LOC: LAB 13:54
PROVIDERS: ATTEND Nurse Practitioner Family
DX: Z31.69 Encounter for other general counseling and advice on procreation (principal)
CPT/HCPCS: 89320

== ENCOUNTER 2019-10-16 10:57 | Outpatient (RCR) | payer SELFPAY ==
[2019-10-16 11:58] LABS: SEMEN VOLUME 0.8 ML (1.5-5.0)
== END 2020-01-14 | disposition home or self-care (01) ==
LOC: LAB 10:57
PROVIDERS: ATTEND Family Medicine
DX: R86.9 Unspecified abnormal finding in specimens from male genital organs (principal)
CPT/HCPCS: 89320